=== PATIENT | female | born 1955 | race Caucasian/White ===

== ENCOUNTER 2016-10-30 15:55 | Emergency (ER) | payer BC ==
[~2016-10-30] VITALS: Ht 167.6 cm; Wt 89.0 kg
[~2016-10-30 15:55] MED LIST: AMIO200T4 PO; ASCO100061 PO; ATEN-173 PO; CHOL100010 PO; COEN1CAP37 PO; DABI150C PO; ESTVR2 VAGRING; MAGN1TAB21 PO; MULT-506 PO; SEA KELP PO; [UNRECOGNIZED DRUG - CODE] TOP; [UNRECOGNIZED DRUG - OTHER] PO
[2016-10-30 16:02] VITALS: BP 150/98; PULSE 76; TEMP 36.7; O2SAT 99; Ht 167.6 cm; Wt 89.0 kg
[2016-10-30] MEDS ORDERED: RABIES VACCINE (IMOVAX) HUMAN DIPL CELL 2.5 INTER.UNIT/ML SYR IM. ONE (16:15)
[2016-10-30] MEDS ORDERED: KELP100T PO (16:24)
[2016-10-30] MEDS ORDERED: TNR25 PO (16:24)
[2016-10-30] MEDS ORDERED: CHOL100027 PO (16:24)
--- NOTE | 2016-10-30 16:42 | EMERGENCY ROOM VISIT NOTE ---
History First contact with patient: 16:02 Chief Complaint: RABIES VACCINE Stated Complaint: RABIES EXPOSURE History of Present Illness The patient is a 60 year old female who presents to the Emergency Room with her spouse, requesting rabies post exposure prophylaxis. The patient reports that her was installing fence posts on their property when a ground hog walked up to him, walking in circles. He did kill the ground hog. The patient and are concerned because the ground hog has been eating the same peaches that they have been eating, and are concerned about transmission of rabies by saliva. Both the patient and have undergone the rabies post exposure prophylaxis series in the after their dog got into a fight with a ground hog that was also acting suspiciously. They did have contact with the ground hog saliva with that incident. Review of Systems 10 system review was performed and was negative except for pertinent positives and negatives as indicated in history of present illness Past Medical/Surgical History Medical Problems: (1) Fracture, tibial plateau Family History Pneumonia Social History Smoking Status: Never Smoker Marital Status: Housing Status: lives with significant other Occupation Status: employed Current/Historical Medications Scheduled Ascorbic Acid (Ascorbic Acid), 1,000 MG PO DAILY Atenolol (Atenolol), 12.5 MG PO DAILY Cholecalciferol (Vitamin D 1000 Unit), 1,000 INTER.UNIT PO DAILY Coenzyme Q10 (Ubidecarenone) (Co Q-10), 200 MG PO DAILY Dabigatran Etexilate Mesylate (Pradaxa), 150 MG PO BID Kelp (Kelp), 100 MG PO DAILY Magnesium Citrate (Mg Suppleme (Magnesium Citrate), 100 MG PO DAILY Multivitamin (Multivitamin), 1 TAB PO DAILY Allergies Coded Allergies: No Known Allergies (Unverified , 07/01/13) Physical Exam Vital Signs Date Time Temp Pulse Resp B/P (MAP) Pulse Ox O2 Delivery O2 Flow Rate FiO2 10/30/16 16:02 36.7 76 18 150/98 99 Room Air Pain Rating (0-10): 0 Physical Exam CONSTITUTIONAL: Healthy and well nourished. HEENT: Normocephalic, atraumatic. Pupils equal, round and reactive. INTEGUMENTARY: No rash or other significant dermatologic conditions noted. NEUROLOGIC: No focal neurologic deficits noted. Medical Decision & Procedures Medications Administered Medications (Trade) Dose Ordered Sig/Blanche Route Start Time Stop Time Status Last Admin Dose Admin Rabies Vaccine Human Diploid Cell (Imovax Rabies) 2.5 interunit ONCE ONCE IM. 10/30/16 16:15 10/30/16 16:16 DC 10/30/16 16:10 2.5 INTERUNIT ED Course Patient history and physical exam were performed. Nurse's notes were reviewed. Vital signs were reviewed and were normal. The patient was administered Imovax IM. The patient was instructed to return in 3 days for a final Imovax immunization. Return sooner with any adverse effects to the injections. Medical Decision Impression Primary Impression: Need for prophylactic vaccination against rabies Departure Information Dispostion Home / Self-Care Forms HOME CARE DOCUMENTATION FORM, IMPORTANT VISIT INFORMATION Patient Instructions [facility] Additional Instructions Return on Thursday 11/02 for your last Imovax injection
== END 2016-10-30 16:23 | disposition home or self-care (01) ==
LOC: C.EDB 15:56 → C.EDD 16:23
DX: Z20.3 Contact with and (suspected) exposure to rabies (principal); Z23 Encounter for immunization; Z79.899 Other long term (current) drug therapy

== ENCOUNTER 2016-11-02 12:47 | Emergency (ER) | payer BC ==
[~2016-11-02] VITALS: Ht 167.6 cm; Wt 91.6 kg
[~2016-11-02 12:47] MED LIST changes: -AMIO200T4 PO; -ATEN-173 PO; -CHOL100010 PO; +CHOL100027 PO; -ESTVR2 VAGRING; +KELP100T PO; -SEA KELP PO; +TNR25 PO; -[UNRECOGNIZED DRUG - CODE] TOP; -[UNRECOGNIZED DRUG - OTHER] PO
[2016-11-02 12:54] VITALS: TEMP 36.7; Ht 167.6 cm; Wt 91.6 kg
[2016-11-02] MEDS ORDERED: RABIES VACCINE (IMOVAX) HUMAN DIPL CELL 2.5 INTER.UNIT/ML SYR IM. ONE (13:15)
--- NOTE | 2016-11-02 13:20 | EMERGENCY ROOM VISIT NOTE ---
History First contact with patient: 13:04 Chief Complaint: RABIES VACCINE REPEAT VISIT Stated Complaint: FOLLOW UP RABIES SHOT History of Present Illness The patient is a 60 year old female who presents to the Emergency Room for a second and final Imovax injection. The patient has already undergone a previous rabies postexposure prophylaxis series. The patient denies any adverse reactions to her previous injection. Review of Systems 6 system review was performed and was negative except for pertinent positives and negatives as indicated in history of present illness Past Medical/Surgical History Medical Problems: (1) Fracture, tibial plateau Family History Pneumonia Social History Smoking Status: Never Smoker Marital Status: Housing Status: lives with significant other Occupation Status: employed Current/Historical Medications Scheduled Ascorbic Acid (Ascorbic Acid), 1,000 MG PO DAILY Atenolol (Atenolol), 12.5 MG PO DAILY Cholecalciferol (Vitamin D 1000 Unit), 1,000 INTER.UNIT PO DAILY Coenzyme Q10 (Ubidecarenone) (Co Q-10), 200 MG PO DAILY Dabigatran Etexilate Mesylate (Pradaxa), 150 MG PO BID Kelp (Kelp), 100 MG PO DAILY Magnesium Citrate (Mg Suppleme (Magnesium Citrate), 100 MG PO DAILY Multivitamin (Multivitamin), 1 TAB PO DAILY Physical Exam Vital Signs Date Time Temp Pulse Resp B/P (MAP) Pulse Ox O2 Delivery O2 Flow Rate FiO2 11/02/16 12:54 36.7 77 18 126/82 96 Room Air Physical Exam CONSTITUTIONAL: Healthy and well nourished. HEENT: Normocephalic, atraumatic. Pupils equal, round and reactive. No scleral icterus. INTEGUMENTARY: No rash or other significant dermatologic conditions noted. NEUROLOGIC: No focal neurologic deficits noted. Medical Decision & Procedures ED Course History and physical exam were performed. Nurse's notes were reviewed. Vital signs were reviewed and normal. The patient was administered Imovax IM without adverse reaction. This is the patient's last injection in the series since the patient has already undergone a post exposure prophylaxis series in the past. The patient was advised that if she has any potential rabies exposure in the future, she should advise her healthcare provider that she has already undergone the initial immunization series. The patient was happy with plan of care, and denied any pain at the time of discharge. Medical Decision Blood Pressure Screening Patient's blood pressure: Normal blood pressure Impression Primary Impression: Need for prophylactic vaccination against rabies Departure Information Referrals Mariola August M.D. (PCP) Patient Instructions [facility]
[2016-11-02 13:31] VITALS: BP 127/74; PULSE 74; O2SAT 99
== END 2016-11-02 13:31 | disposition home or self-care (01) ==
LOC: C.EDB 12:51 → C.EDD 13:31
DX: Z23 Encounter for immunization (principal); Z20.3 Contact with and (suspected) exposure to rabies

== ENCOUNTER 2016-12-25 10:02 | Emergency (ER) | payer BC ==
[~2016-12-25] VITALS: Ht 167.6 cm; Wt 86.7 kg
[2016-12-25] VITALS (8 sets, daily range): BP systolic 75–134; BP diastolic 42–81; PULSE 66–100; TEMP 36.8; O2SAT 98–99; Ht 167.6 cm; Wt 86.7 kg
[2016-12-25] MEDS ORDERED: SODIUM CHLORIDE 0.9% 1000ML 500 ML IV STA (10:34)
[2016-12-25] MEDS ORDERED: QUERTAB PO (10:38)
[2016-12-25 10:48] LABS: BASO % 0.3 %; BASO ABS # 0.02 K/uL (0-0.2); COMPLETE YES; EOS % 2.2 %; IG% 0.4 %; LYMPH % 23.7 %; MEAN CELL VOLUME 90.5 fL (80-100); MEAN CORPUSCULAR HEMOGLOBIN 30.5 pg (25-34); MEAN CORPUSCULAR HGB CONC 33.6 g/dl (32-36); MEAN PLATELET VOLUME 11.2 fL (7.4-10.4); MONO % 7.8 %; NEUT % 65.6 %; PLATELET COUNT 199 K/uL (130-400); RED BLOOD COUNT 4.86 M/uL (4.2-5.4); WHITE BLOOD COUNT 7.16 K/uL (4.8-10.8)
[2016-12-25 10:53] LABS: PARTIAL THROMBOPLASTIN RATIO 1.4; PROTHROMBIN TIME (PATIENT) 10.8 SECONDS (9.0-12.0)
[2016-12-25 10:54] LABS: ALT/SGPT 25 U/L (12-78); BLOOD UREA NITROGEN 15 mg/dl (7-18); CALCIUM 9.3 mg/dl (8.5-10.1); CARBON DIOXIDE 27 mmol/L (21-32); CHLORIDE 107 mmol/L (98-107); CREATININE 0.95 mg/dl (0.60-1.20); GLUCOSE 94 mg/dl (70-99); MAGNESIUM 2.2 mg/dl (1.8-2.4); SODIUM 140 mmol/L (136-145)
--- NOTE | 2016-12-25 10:59 | DIAGNOSTIC IMAGING REPORT ---
CHEST ONE VIEW PORTABLE HISTORY: EVALUATE ALTERED MENTAL STATUS/WEAKNESS COMPARISON: Chest 07/02/2013. FINDINGS: The lungs are clear. Cardiac silhouette is normal in size. No pleural effusions. No pneumothorax. IMPRESSION: No acute process. Electronically signed by: Chip Mcclain M.D. 12/25/2016 10:57 AM Dictated Date/Time: 12/25/2016 10:54 AM
[2016-12-25 11:05] LABS: URINE APPEARANCE CLEAR (CLEAR); URINE BILIRUBIN NEG (NEG); URINE COLOR YELLOW; URINE EPITHELIAL CELL AUTO >30 /lpf (0-5); URINE NITRITE NEG (NEG); URINE SPECIFIC GRAVITY 1.015 (1.000-1.030); UROBILINOGEN NEG (NEG); ZZUR CULT IF INDIC CLEAN CATCH NO
[2016-12-25 11:05] LABS: ALKALINE PHOSPHATASE 76 U/L (45-117); AST/SGOT 20 U/L (15-37)
[2016-12-25 11:07] LABS: MANUAL MICROSCOPIC REQUIRED? NO; REVIEW REQ? NO
--- NOTE | 2016-12-25 11:14 | EMERGENCY ROOM VISIT NOTE ---
History Report prepared by Marlena: Melvi Tuttle Under the Supervision of: Dr. Holland Garland M.D. First contact with patient: 10:25 Chief Complaint: IRREGULAR HEARTBEAT Stated Complaint: A-FIB Nursing Triage Summary: pt reports woke up this AM HR 125, reports hx of A fib , denies cp or sob at this time History of Present Illness The patient is a 61 year old female who presents to the Emergency Room with complaints of a persistent irregular heartbeat that began this morning. The patient reports a history of atrial fibrillation, noting that she was last cardioverted on Jul 28 2015. She states that she had a colonoscopy on December 12, noting that she held her morning and night doses of Pradaxa on December 11 and . The patient states that she resumed her medication normally and states that she last had her Pradaxa last evening. She states that she woke this morning with an irregular heartbeat and was evaluated by Dr. Escalante. The patient states that she was sent to the emergency department for a work up prior to cardioversion. She states that she last ate last evening. The patient denies any chest pain or shortness of breath. She reports fluttering in her chest and nausea. The patient denies any dizziness. Source of History: patient Onset: this morning Position: other (global) Quality: other (irregular heartbeat) Timing: other (persistent) Associated Symptoms: + nausea, No chest pain, No SOB Review of Systems See HPI for pertinent positives & negatives. A total of 10 systems reviewed and were otherwise negative. Past Medical & Surgical Medical Problems: (1) Fracture, tibial plateau Family History Pneumonia Social History Smoking Status: Never Smoker Marital Status: Housing Status: lives with significant other Occupation Status: employed Current/Historical Medications Scheduled Ascorbic Acid (Ascorbic Acid), 1,000 MG PO DAILY Atenolol (Atenolol), 12.5 MG PO BID Cholecalciferol (Vitamin D 1000 Unit), 1,000 INTER.UNIT PO DAILY Coenzyme Q10 (Ubidecarenone) (Co Q-10), 200 MG PO DAILY Dabigatran Etexilate Mesylate (Pradaxa), 150 MG PO BID Kelp (Kelp), 100 MG PO DAILY Magnesium Citrate (Mg Suppleme (Magnesium Citrate), 100 MG PO DAILY Multivitamin (Multivitamin), 1 TAB PO DAILY Quercetin (Quercetin), 50 MG PO DAILY Allergies Coded Allergies: No Known Allergies (Unverified , 12/25/16) Physical Exam Vital Signs Date Time Temp Pulse Resp B/P (MAP) Pulse Ox O2 Delivery O2 Flow Rate FiO2 12/25/16 12:45 66 16 100/70 (80) 98 Room Air 12/25/16 12:30 68 16 88/65 (73) 98 Room Air 12/25/16 12:13 68 16 108/78 (88) 98 Room Air 12/25/16 12:03 67 16 97/70 (79) 98 Room Air 12/25/16 11:53 66 16 100/64 (76) 98 Room Air 12/25/16 11:50 70 16 100/64 99 Nasal Cannula 4 12/25/16 11:47 100 16 75/42 99 Nasal Cannula 4 12/25/16 11:42 99 16 97/47 99 Nasal Cannula 4 12/25/16 11:37 100 16 82/51 99 Nasal Cannula 4 12/25/16 11:32 99 16 111/74 99 Nasal Cannula 4 12/25/16 11:21 36.8 70 20 134/81 98 12/25/16 11:18 36.8 70 20 134/81 Room Air 12/25/16 11:10 70 18 110/74 98 Room Air 12/25/16 10:56 70 18 118/72 97 Room Air 12/25/16 10:28 90 12/25/16 10:23 96 Room Air 12/25/16 10:08 36.8 101 20 124/87 98 Room Air Physical Exam GENERAL: Patient is in no acute distress. HEENT: No acute trauma, normocephalic atraumatic, mucous membranes moist, no nasal congestion, no scleral icterus. NECK: No stridor, no adenopathy, no meningismus, trachea is midline. LUNGS: Clear to auscultation bilaterally, no wheeze, no rhonchi, breath sounds equal. HEART: Irregular without murmurs, rate is normal. ABDOMEN: Soft, nontender, bowel sounds positive, no hernias, no peritonitis. EXTREMITIES: No cyanosis or edema, full range of motion of all the joints without pain or difficulty, no signs for acute trauma. NEUROLOGIC: Oriented x 3, no acute motor or sensory deficits, no focal weakness. SKIN: No rash, no jaundice, no diaphoresis. Medical Decision & Procedures ER Provider Diagnostic Interpretation: X-ray results as stated below per interpretation by me and the radiologist: CHEST ONE VIEW PORTABLE HISTORY: EVALUATE ALTERED MENTAL STATUS/WEAKNESS COMPARISON: Chest 07/02/2013. FINDINGS: The lungs are clear. Cardiac silhouette is normal in size. No pleural effusions. No pneumothorax. IMPRESSION: No acute process. Electronically signed by: Chip Mcclain M.D. 12/25/2016 10:57 AM Dictated Date/Time: 12/25/2016 10:54 AM Laboratory Results 12/25/16 10:20 Red Blood Count 4.86, Mean Corpuscular Volume 90.5, Mean Corpuscular Hemoglobin 30.5, Mean Corpuscular Hemoglobin Concent 33.6, Mean Platelet Volume 11.2, Neutrophils (%) (Auto) 65.6, Lymphocytes (%) (Auto) 23.7, Monocytes (%) (Auto) 7.8, Eosinophils (%) (Auto) 2.2, Basophils (%) (Auto) 0.3, Neutrophils # (Auto) 4.69, Lymphocytes # (Auto) 1.70, Monocytes # (Auto) 0.56, Eosinophils # (Auto) 0.16, Basophils # (Auto) 0.02 12/25/16 10:20 Test 12/25/16 10:20 12/25/16 10:45 White Blood Count 7.16 K/uL (4.8-10.8) Red Blood Count 4.86 M/uL (4.2-5.4) Hemoglobin 14.8 g/dL (12.0-16.0) Hematocrit 44.0 % (37-47) Mean Corpuscular Volume 90.5 fL (80-100) Mean Corpuscular Hemoglobin 30.5 pg (25-34) Mean Corpuscular Hemoglobin Concent 33.6 g/dl (32-36) Platelet Count 199 K/uL (130-400) Mean Platelet Volume 11.2 fL (7.4-10.4) Neutrophils (%) (Auto) 65.6 % Lymphocytes (%) (Auto) 23.7 % Monocytes (%) (Auto) 7.8 % Eosinophils (%) (Auto) 2.2 % Basophils (%) (Auto) 0.3 % Neutrophils # (Auto) 4.69 K/uL (1.4-6.5) Lymphocytes # (Auto) 1.70 K/uL (1.2-3.4) Monocytes # (Auto) 0.56 K/uL (0.11-0.59) Eosinophils # (Auto) 0.16 K/uL (0-0.5) Basophils # (Auto) 0.02 K/uL (0-0.2) RDW Standard Deviation 44.8 fL (36.4-46.3) RDW Coefficient of Variation 13.6 % (11.5-14.5) Immature Granulocyte % (Auto) 0.4 % Immature Granulocyte # (Auto) 0.03 K/uL (0.00-0.02) Prothrombin Time 10.8 SECONDS (9.0-12.0) Prothromb Time International Ratio 1.0 (0.9-1.1) Activated Partial Thromboplast Time 37.2 SECONDS (21.0-31.0) Partial Thromboplastin Ratio 1.4 Anion Gap 6.0 mmol/L (3-11) Est Creatinine Clear Calc Drug Dose 69.0 ml/min Estimated GFR () 74.9 Estimated GFR (Non- 64.6 BUN/Creatinine Ratio 16.0 (10-20) Calcium Level 9.3 mg/dl (8.5-10.1) Magnesium Level 2.2 mg/dl (1.8-2.4) Total Bilirubin 0.3 mg/dl (0.2-1) Aspartate Amino Transf (AST/SGOT) 20 U/L (15-37) Alanine Aminotransferase (ALT/SGPT) 25 U/L (12-78) Alkaline Phosphatase 76 U/L (45-117) Troponin I < 0.015 ng/ml (0-0.045) Total Protein 8.0 gm/dl (6.4-8.2) Albumin 4.1 gm/dl (3.4-5.0) Globulin 3.9 gm/dl (2.5-4.0) Albumin/Globulin Ratio 1.0 (0.9-2) Thyroid Stimulating Hormone (TSH) 1.980 uIu/ml (0.300-4.500) Urine Color YELLOW Urine Appearance CLEAR (CLEAR) Urine pH 7.0 (4.5-7.5) Urine Specific [place] 1.015 (1.000-1.030) Urine Protein NEG (NEG) Urine Glucose (UA) NEG (NEG) Urine Ketones NEG (NEG) Urine Occult Blood NEG (NEG) Urine Nitrite NEG (NEG) Urine Bilirubin NEG (NEG) Urine Urobilinogen NEG (NEG) Urine Leukocyte Esterase SMALL (NEG) Urine WBC (Auto) 1-5 /hpf (0-5) Urine RBC (Auto) 0-4 /hpf (0-4) Urine Hyaline Casts (Auto) 0 /lpf (0-5) Urine Epithelial Cells (Auto) >30 /lpf (0-5) Urine Bacteria (Auto) NEG (NEG) Laboratory results reviewed by me. Medications Administered Medications (Trade) Dose Ordered Sig/Blanche Route Start Time Stop Time Status Last Admin Dose Admin Sodium Chloride 500 ml @ 999 mls/hr Q31M STAT IV 12/25/16 10:34 12/25/16 11:04 DC 12/25/16 10:55 999 MLS/HR ECG Indication: palpitations Rate (beats per minute): 97 Rhythm: atrial flutter Findings: ST depression (Lateral), T-wave inversion (inferior and lateral) ED Course 1034: Ordered Sodium Chloride 500 ml @ 999 mls/hr IV. 1102: The patient was evaluated in room A11B. A complete history and physical exam was performed. I discussed the exam findings with her and I discussed the treatment plan. She verbalized complete understanding and agreement. She will be taken to the director of cath lab shortly. 1108: I discussed the patients case with Dr. Sears, Cardiology. He states that he will be over to take the patient to the director of cath lab for further treatment and care. Medical Decision The patient is a 61 year old female who presents to the ED with complaints of an irregular heartbeat. Differential diagnoses considered include atrial fibrillation or atrial flutter, [place], electrolyte imbalance, anemia, dehydration. There is no leukocytosis or concerning anemia. No significant electrolyte abnormality, kidney failure or hepatitis. The patient appears to be in a euthyroid state. There is no coagulopathy. EKG shows an atrial fib or atrial flutter, no acute ischemic change. Cardiac enzyme testing times one is not consistent with acute cardiac injury. Chest x-ray does not show pneumonia, CHF or pneumothorax. Urinalysis does not show infection. Patient received IV saline, she has been resting comfortably. The patient is stable. She has had atrial fib/atrial flutter before. She is scheduled for presumed cardioversion. I did speak with Dr. Sears of cardiology. He is going to see the patient and the patient will likely be taken to the cardiovascular lab for further intervention. Medication Reconcilliation Current Medication List: was personally reviewed by me Consults Time Called: 1107 Consulting Physician: Dr. Sears, Cardiology Returned Call: 1108 I discussed the patients case with Dr. Sears, Cardiology. He states that he will be over to take the patient to the director of cath lab for further treatment and care. Impression Primary Impression: Atrial flutter Scribe Attestation The scribe's documentation has been prepared under my direction and personally reviewed by me in its entirety. I confirm that the note above accurately reflects all work, treatment, procedures, and medical decision making performed by me. Departure Information Dispostion Still a Patient Referrals Mariola August M.D. (PCP)
[2016-12-25] MEDS ORDERED: FENTANYL CITRATE INJ 50 MCG/1 ML 2 ML VIAL ONE (11:25)
[2016-12-25] MEDS ORDERED: PROPOFOL IV EMULSION 10 MG/ML 20 ML VIAL IV ONE (11:27)
--- NOTE | 2016-12-25 12:00 | Cardiology Procedure Brief Nt ---
Preliminary Cardiology Note Procedure Date Dec 25, 2016. 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 Patient aroused, tolerated well. 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
--- NOTE | 2016-12-25 12:06 | Discharge Instructions ---
Discharge Instructions Procedure Procedure Date: Dec 25, 2016. Reason for Visit: A-FIB. Discharge Discharge Date: Dec 25, 2016. Discharge Diagnosis: Successful FRANCIS guided synchronized electrical cardioversion for atrial fibrillation Problem List: Medical Problems: (1) Atrial flutter Status: Acute Last Recorded Wt (Kilograms): 86.700 Anesthesia Post Anesthesia Instructions: If you have had General Anesthesia or IV Sedation: * Do not drive today. * Resume driving when surgeon permits. * Do not make important decisions or sign legal documents today. * Call surgeon for: 1. Temperature elevations greater than 101 degrees F. 2. Uncontrollable pain. 3. Excessive bleeding. 4. Persistent nausea and vomiting. 5. Medication intolerance (nausea, vomiting or rash). * For nausea and vomiting use only clear liquids such as: tea, soda, bouillon until nausea subsides, then gradually increase diet as tolerated. * If you have any concerns or questions, call your surgeon's office. If physician is unavailable and it is an emergency, call 911 or go to the nearest emergency room. Instructions Activity Recommendations: limitations as noted below Recommended Home Diet: resume previous diet Allergies: Coded Allergies: No Known Allergies (Unverified , 12/25/16) Provider Instructions ACTIVITY RECOMMENDATIONS: Resume activities as tolerated with no limitations unless specified. __ No lifting over __ pounds for 24 hours. __ Do not engage in vigorous exercise, sexual activity, or sports for 24 hours. __ Do not drive or operate any motorized equipment for 24 hours. __ You may return to work/school tomorrow. __ Nothing to eat or drink until gag reflex returns. __ No HOT or WARM liquids for __ hours. __ Avoid "scratchy" foods such as potato chips or pretzels for 24 hours following procedure. SPECIAL CARE: If you experience coughing up or vomiting of blood, contact Follow Up Follow-up with: DR Escalante as scheduled Deborah Spear Recommendations: Call your doctor if: * Temperature above 101 degrees * Pain not relieved by pain medicine ordered * There is increased drainage or redness from any incision * You have any unanswered questions or concerns. Your Doctors Instructions noted above were prepared by provider Yan Sears. Patient Signature Section: Patient Instructions Signature Page More Christian Patient (or Guardian) Signature/Date: I have read and understand the instructions given to me by my caregivers. Caregiver/RN/Doctor Signature/Date: The above-named patient and/or guardian has received patient instructions on this date. + Original Patient Signature Page (only) stays with chart. Please make copy for patient.
--- NOTE | 2016-12-25 12:30 | Anesthesiology Progress Note ---
Anesthesia Post Op Note Date & Time Dec 25, 2016 at 12:30 Vital Signs Pain Intensity: 0 Vital Signs Past 12 Hours Date Time Temp Pulse Resp B/P (MAP) Pulse Ox O2 Delivery O2 Flow Rate FiO2 12/25/16 12:13 68 16 108/78 (88) 98 Room Air 12/25/16 12:03 67 16 97/70 (79) 98 Room Air 12/25/16 11:53 66 16 100/64 (76) 98 Room Air 12/25/16 11:50 70 16 100/64 99 Nasal Cannula 4 12/25/16 11:47 100 16 75/42 99 Nasal Cannula 4 12/25/16 11:42 99 16 97/47 99 Nasal Cannula 4 12/25/16 11:37 100 16 82/51 99 Nasal Cannula 4 12/25/16 11:32 99 16 111/74 99 Nasal Cannula 4 12/25/16 11:21 36.8 70 20 134/81 98 12/25/16 11:18 36.8 70 20 134/81 Room Air 12/25/16 11:10 70 18 110/74 98 Room Air 12/25/16 10:56 70 18 118/72 97 Room Air 12/25/16 10:28 90 12/25/16 10:23 96 Room Air 12/25/16 10:08 36.8 101 20 124/87 98 Room Air Notes Mental Status: alert / awake / arousable, participated in evaluation Pt Amnestic to Procedure: Yes Nausea / Vomiting: adequately controlled Pain: adequately controlled Airway Patency, RR, SpO2: stable & adequate BP & HR: stable & adequate Hydration State: stable & adequate Anesthetic Complications: no major complications apparent
--- NOTE | 2016-12-25 12:35 | HISTORY & PHYSICAL EXAMINATION ---
DATE OF ADMISSION: 12/25/2016 CARDIOLOGY ADMISSION NOTE REFERRING PHYSICIAN: Dr. Escalante. INDICATIONS: Paroxysmal atrial fibrillation with recent relapse. HISTORY OF PRESENT ILLNESS: The patient is a 61-year-old female whose history is notable for paroxysmal atrial fibrillation with prior radiofrequency ablation, April 2015 with redo radiofrequency ablation in July of 2015. The patient has had no recent recurrence of atrial arrhythmias until this morning when she awakened from sleep with a sense of tachypalpitations and breathlessness with activity. Notes usual heart rates run in the 50s and this morning at rest it was 104 and with rapid increase with minimal activity. Past history is notable for prior cerebral infarct, on chronic anticoagulation, notes Pradaxa was recently interrupted for colonoscopy. Otherwise, feeling well. Notes no underlying other medical problems. Notes no chest pains, dizziness, lightheadedness, syncope or near syncope. Notes no fevers, chills or productive cough. Notes no melena, hematochezia, dysuria or hematuria. Has been taking medications otherwise safely. ALLERGIES: None. MEDICATIONS PRIOR TO HOSPITALIZATION: Tenormin 25 mg 1/2 tablet twice per day, Pradaxa 150 mg twice per day, B complex daily, estradiol vaginal cream, omega 3 fish oils, cholecalciferol 1000 units every day, mag citrate 100 mg daily, multivitamin per day. FAMILY HISTORY: Not notable for cardiac disease other than atrial fibrillation. SOCIAL HISTORY: The patient is a nonsmoker. Very rare alcohol user. She is physically active without specific limitation until events occur. LABORATORY DATA: EKG today demonstrates atrial fibrillation with elevated ventricular response, rate 97-110. IMPRESSION: A 61-year-old female with history of paroxysmal atrial fibrillation with relapse this morning. She is chronically anticoagulated with Pradaxa given history of past stroke. She presents today for further evaluation and has been recommended to undergo FRANCIS-guided cardioversion with FRANCIS portion added due to recent interruption of Pradaxa for colonoscopy. Procedure and risks were explained in detail. The patient was referred to the central lab technician for same day procedure. GRACIE
--- NOTE | 2016-12-25 13:01 | CARDIOVERSION ---
DATE OF OPERATION: 12/25/2016 PROCEDURE: Synchronized electrical cardioversion, TE guided. INDICATIONS: Atrial fibrillation with rapid ventricular response. After the procedure and risks were explained in detail to the patient informed consent was obtained. The patient was sedated through anesthesia consult. Transesophageal echocardiogram was performed without difficulty with no evidence to suggest contraindication for synchronized cardioversion. In the same setting patient was repositioned, TE probe removed and patient underwent single 150 joule biphasic synchronized cardioversion with successful conversion to sinus rhythm. Post procedure patient was aroused having tolerated well. EKG post procedure demonstrated sinus rhythm with sinus arrhythmia and first degree AV block, rate 68, QT criteria 425. RECOMMENDATIONS: The patient to be continued on same medications, no adjustments to medical therapy. Will anticipate discharge to home following observation period. FRANCIS guidelines given. I attest to the content of the Intraoperative Record and any orders documented therein. Any exception s are noted below.
--- NOTE | 2016-12-26 13:40 | TEE ---
*NOTICE TO RECEIVING LIBERTARIAN AGENCY This information is strictly Confidential and protected under [place] law. [place] law prohibits you from making any further disclosure of this information unless further disclosure is expressly permitted by the written consent of the person to whom it pertains or is authorized by law. A general authorization for the release of medical or other information is not sufficient for this purpose. Hospital accepts no responsibility if the information is made available to any other person, INCLUDING THE PATIENT. Interpretation Summary * Name: CHRYSTAL BRADY Study Date: 12/25/2016 11:24 AM BP: 111/74 mmHg * Patient Location: [facility] HR: 103 * : 1955 (M/d/yyyy) Gender: Female Height: 66 in * Age: 61 yrs Ethnicity: [place] Weight: 191 lb * Ordering Physician: Yan Sears MD, [facility] * Performed By: Esther Irizarry RDCS * * Reason For Study: A-Fib * BSA: 2.0 m2 * No contraindications to electrical cardioversion observed. * -- Conclusions -- * No thrombus is detected in the left atrial appendage. Procedure Details * The transesophageal portion of this study was personally supervised by the undersigned interpreting physician. * FRANCIS Probe #1 utilized for procedure. * The study was performed in Cardiac Catheterization Lab. * Time out was conducted by the physician, nurse, and epitaxial reactor technician with positive identification of patient and procedure. * Informed consent for Transesophageal Echocardiogram was obtained prior to the procedure. * An intravenous line was placed. A topical anesthetic agent was used for oropharangeal anesthesia. A bite block was inserted. * Sedation performed by the anesthesia department. * The patient's vital signs, including blood pressure, heart rate, pulse oximetry and cardiac rhythm were monitored throughout the procedure . * The posterior oropharynx was anesthetized using a topical anesthetic spray. A bite guard was inserted. * A multifrequency, multiplane transesopheageal echocardiographic endoscope was inserted and manipulated in the standard fashion to achieve multiplane views. * The transesophageal probe was passed without difficulty. * The usual views were obtained; basal, mid-esophageal, transgastric and aortic views. * The patient tolerated the procedure well without evidence of orophangeal or esophageal trauma. * Contrast injection with agitated saline was performed. * Procedure start time was 11:30. Procedure end time was 11:53. Left Ventricle * The left ventricle is normal in size. * There is normal left ventricular wall thickness. * Left ventricular systolic function is normal. * Ejection Fraction = 60-65%. * The left ventricular wall motion is normal. Right Ventricle * The right ventricle is normal in size and function. Atria * The left atrial size is normal. * No thrombus is detected in the left atrial appendage. * No left atrial mass or thrombus visualized. * Right atrial size is normal. * The interatrial septum is intact with no evidence for an atrial septal defect. * Injection of contrast documented no interatrial shunt. Tricuspid Valve * The tricuspid valve is normal. * There is no tricuspid stenosis. * There is trace tricuspid regurgitation. Aortic Valve * The aortic valve is trileaflet. * No hemodynamically significant valvular aortic stenosis. * Trace aortic regurgitation. Pulmonic Valve * Pulmonic stenosis is absent. * There is no significant pulmonary regurgitation. * The pulmonic valve is not well seen, but is grossly normal. Great Vessels * The aortic root is normal size. Pericardium * There is no pericardial effusion.
== END 2016-12-25 11:10 | disposition home or self-care (01) ==
LOC: C.EDB 10:03 → C.EDA 11:10
DX: I48.92 Unspecified atrial flutter (principal); I48.91 Unspecified atrial fibrillation

== ENCOUNTER 2017-02-04 11:08 | Emergency (ER) | payer BC ==
[~2017-02-04] VITALS: Ht 167.6 cm; Wt 87.8 kg
[~2017-02-04 11:08] MED LIST changes: +QUERTAB PO
[2017-02-04 11:14] VITALS: TEMP 36.8; Ht 167.6 cm; Wt 87.8 kg
[2017-02-04] MEDS ORDERED: APIX1TAB3 PO (11:26)
[2017-02-04] MEDS ORDERED: AMOX875T PO (11:26)
[2017-02-04] MEDS ORDERED: OMEG10007 PO (11:26)
[2017-02-04] MEDS ORDERED: VITBC PO (11:26)
[2017-02-04] MEDS ORDERED: CLINDAMYCIN IV 600 MG in DEXTROSE 5% 50ML 50 ML IV ONE (11:45)
[2017-02-04 12:21] LABS: BASO % 0.4 %; BASO ABS # 0.02 K/uL (0-0.2); COMPLETE YES; EOS % 1.9 %; HEMATOCRIT 37.2 % (37-47); IG% 0.2 %; LYMPH % 24.7 %; MEAN CELL VOLUME 91.2 fL (80-100); MEAN CORPUSCULAR HEMOGLOBIN 30.9 pg (25-34); MEAN CORPUSCULAR HGB CONC 33.9 g/dl (32-36); MONO % 10.1 %; NEUT % 62.7 %; PLATELET COUNT 167 K/uL (130-400); RED BLOOD COUNT 4.08 M/uL (4.2-5.4); WHITE BLOOD COUNT 5.66 K/uL (4.8-10.8)
[2017-02-04 12:42] LABS: C-REACTIVE PROTEIN 5.03 mg/dl (0-0.29); CALCIUM 9.2 mg/dl (8.5-10.1); CREATININE 0.75 mg/dl (0.60-1.20); POTASSIUM 4.2 mmol/L (3.5-5.1)
--- NOTE | 2017-02-04 12:59 | DIAGNOSTIC IMAGING REPORT ---
RIGHT FOURTH FINGER 3 VIEWS CLINICAL HISTORY: Finger pain status post CABG bite COMPARISON: None. DISCUSSION: No acute fractures or dislocations are visualized. There is no conventional radiographic evidence of osteomyelitis. There is soft tissue swelling centered on the proximal interphalangeal joint. No radiopaque foreign bodies are visualized. IMPRESSION: 1. Soft tissue swelling 2. No acute fractures 3. No conventional radiographic evidence of acute osteomyelitis Electronically signed by: Dennis Calix M.D. 02/04/2017 12:58 PM Dictated Date/Time: 02/04/2017 12:57 PM
[2017-02-04] MEDS ORDERED: METR-162 PO (13:04)
--- NOTE | 2017-02-04 13:04 | EMERGENCY ROOM VISIT NOTE ---
History Report prepared by Marlena: Mayco Palomo Under the Supervision of: Dr. Edwardo Jean M.D. First contact with patient: 11:37 Chief Complaint: BITE Stated Complaint: INCREASED REDNESS,SWELLING AFTER CAT BITE History of Present Illness The patient is a 61 year old female who presents to the Emergency Room with complaints of a worsening right hand infection after a cat bite two days ago. She states that she had a low grade fever of 100.2 degrees yesterday. She states that the cat that bit her was feral. The patient was immunized for rabies four months ago after being bit by a ground hog. She denies headache, or abdominal pain. She is currently taking Augmentin and has had five doses so far. Source of History: patient Onset: Two days ago Position: hand (right) Quality: other (infection) Timing: worsening Associated Symptoms: + fevers (low grade of 100.2), No headache, No abdominal pain Review of Systems See HPI for pertinent positives & negatives. A total of 10 systems reviewed and were otherwise negative. Past Medical & Surgical Medical Problems: (1) Acute appendicitis (2) Anticoagulant long-term use (3) Atrial fibrillation with rapid ventricular response (4) Fracture, tibial plateau (5) Paroxysmal atrial fibrillation Family History Pneumonia Social History Smoking Status: Never Smoker Marital Status: Housing Status: lives with significant other Occupation Status: employed Current/Historical Medications Scheduled Amoxicillin & Pot Clavulanate (Augmentin 875-125 mg), 1 TAB PO BID Apixaban (Eliquis), 5 MG PO BID Ascorbic Acid (Ascorbic Acid), 1,000 MG PO DAILY Atenolol (Atenolol), 12.5 MG PO BID Cholecalciferol (Vitamin D 1000 Unit), 1,000 INTER.UNIT PO DAILY Coenzyme Q10 (Ubidecarenone) (Co Q-10), 200 MG PO DAILY Fish Oil ([place]-3), 1 CAP PO DAILY Kelp (Kelp), 100 MG PO DAILY Magnesium Citrate (Mg Suppleme (Magnesium Citrate), 100 MG PO DAILY Metronidazole (Flagyl), 500 MG PO TID Multivitamin (Multivitamin), 1 TAB PO DAILY Vitamin B Complex (Vitamin B Complex), 1 TAB PO DAILY Allergies Coded Allergies: No Known Allergies (Unverified , 02/04/17) Physical Exam Vital Signs Date Time Temp Pulse Resp B/P (MAP) Pulse Ox O2 Delivery O2 Flow Rate FiO2 02/04/17 13:15 78 17 106/64 96 Room Air 02/04/17 11:14 36.8 81 18 128/85 97 Room Air Physical Exam GENERAL: Patient is well appearing and in minimal distress. HEENT: No acute trauma, normocephalic atraumatic, mucous membranes moist, no nasal congestion, no scleral icterus. NECK: No stridor, no adenopathy, no meningismus, trachea is midline. LUNGS: No dyspnea. Clear to auscultation and equal bilaterally. No wheeze, no rhonchi. HEART: Regular rate and rhythm. No murmurs, rubs, gallops appreciated. ABDOMEN: Soft, nontender, bowel sounds positive, no masses appreciated, no peritonitis. BACK: No midline tenderness, no CVA tenderness EXTREMITIES: Swelling to the right dorsal hand spreading over the wrist to the forearm. Extensive swelling to the right fourth digit with two bite garcia on the dorsal side. ROM of fingers with moderate pain. No significant pain on passive flexion and extension. Mild erythema of the palmar aspect of the hand. NEUROLOGIC: Alert and oriented, no acute motor or sensory deficits, no focal weakness, cranial nerves grossly intact. SKIN: No rash, no jaundice, no diaphoresis. Medical Decision & Procedures ER Provider Diagnostic Interpretation: X ray results are stated below per my interpretation and the radiologist's interpretation. RIGHT FOURTH FINGER 3 VIEWS DISCUSSION: No acute fractures or dislocations are visualized. There is no conventional radiographic evidence of osteomyelitis. There is soft tissue swelling centered on the proximal interphalangeal joint. No radiopaque foreign bodies are visualized. IMPRESSION: 1. Soft tissue swelling 2. No acute fractures 3. No conventional radiographic evidence of acute osteomyelitis Electronically signed by: Dennis Calix M.D. 02/04/2017 12:58 PM Laboratory Results 02/04/17 12:01 Red Blood Count 4.08, Mean Corpuscular Volume 91.2, Mean Corpuscular Hemoglobin 30.9, Mean Corpuscular Hemoglobin Concent 33.9, Mean Platelet Volume 11.0, Neutrophils (%) (Auto) 62.7, Lymphocytes (%) (Auto) 24.7, Monocytes (%) (Auto) 10.1, Eosinophils (%) (Auto) 1.9, Basophils (%) (Auto) 0.4, Neutrophils # (Auto ) 3.55, Lymphocytes # (Auto) 1.40, Monocytes # (Auto) 0.57, Eosinophils # (Auto ) 0.11, Basophils # (Auto) 0.02 02/04/17 12:01 Test 02/04/17 12:01 02/04/17 12:14 White Blood Count 5.66 K/uL (4.8-10.8) Red Blood Count 4.08 M/uL (4.2-5.4) Hemoglobin 12.6 g/dL (12.0-16.0) Hematocrit 37.2 % (37-47) Mean Corpuscular Volume 91.2 fL (80-100) Mean Corpuscular Hemoglobin 30.9 pg (25-34) Mean Corpuscular Hemoglobin Concent 33.9 g/dl (32-36) Platelet Count 167 K/uL (130-400) Mean Platelet Volume 11.0 fL (7.4-10.4) Neutrophils (%) (Auto) 62.7 % Lymphocytes (%) (Auto) 24.7 % Monocytes (%) (Auto) 10.1 % Eosinophils (%) (Auto) 1.9 % Basophils (%) (Auto) 0.4 % Neutrophils # (Auto) 3.55 K/uL (1.4-6.5) Lymphocytes # (Auto) 1.40 K/uL (1.2-3.4) Monocytes # (Auto) 0.57 K/uL (0.11-0.59) Eosinophils # (Auto) 0.11 K/uL (0-0.5) Basophils # (Auto) 0.02 K/uL (0-0.2) RDW Standard Deviation 44.9 fL (36.4-46.3) RDW Coefficient of Variation 13.6 % (11.5-14.5) Immature Granulocyte % (Auto) 0.2 % Immature Granulocyte # (Auto) 0.01 K/uL (0.00-0.02) Anion Gap 8.0 mmol/L (3-11) Est Creatinine Clear Calc Drug Dose 87.9 ml/min Estimated GFR () 99.7 Estimated GFR (Non- 86.0 BUN/Creatinine Ratio 15.0 (10-20) Calcium Level 9.2 mg/dl (8.5-10.1) C-Reactive Protein 5.03 mg/dl (0-0.29) Bedside Lactic Acid Venous 0.80 mmol/L (0.90-1.70) Laboratory results as reviewed by me. Medications Administered Medications (Trade) Dose Ordered Sig/Blanche Route Start Time Stop Time Status Last Admin Dose Admin Clindamycin Phosphate 600 mg/ Dextrose 54 ml @ 100 mls/hr ONE ONCE IV 02/04/17 11:45 02/04/17 12:17 DC 02/04/17 12:18 100 MLS/HR ED Course 1138: The patient was evaluated in room B12. A complete history and physical exam was performed. 1145: Ordered Clindamycin Phosphate 600 mg/Dextrose 54 mL @ 100 mL/hr IV. 1305: Reevaluated the patient. Discussed results and discharge instructions: she verbalized understanding and agreement. The patient is ready for discharge. Medical Decision Differential: DVT, CHF, Arterial Occlusion, Infectious, Joint Effusion, Trauma, Lymphedema, Idiopathic, Trauma, amongst other pathologies entertained. 61 yr old female with cat bite right 4th finger. No evidence tendon involvement at this time. Cellulitis spreading just past wrist. No systemic symptoms. Labs look good with expected CRP elevation. No evidence bone involvement 4th digit. Tetanus/Rabies UTD. 2.5 days Augmentin so far thus will continue this and add on Flagyl for extra coverage. She is using probiotic. Discussed risks diarrhea/cdiff with abx use. Discussed RTED for repeat evaluation tomorrow. Discussed wound care and symptoms requiring immediate RTED. Medication Reconcilliation Current Medication List: was personally reviewed by me Blood Pressure Screening Patient's blood pressure: Normal blood pressure Blood pressure disposition: Did not require urgent referral Impression Primary Impression: Cat bite Additional Impression: Cellulitis of hand, right Scribe Attestation The scribe's documentation has been prepared under my direction and personally reviewed by me in its entirety. I confirm that the note above accurately reflects all work, treatment, procedures, and medical decision making performed by me. Departure Information Dispostion Home / Self-Care Prescriptions Metronidazole (FLAGYL) 500 Mg Tab 500 MG PO TID for 7 Days, #21 TAB Prov: Edwardo Jean M.D. 02/04/17 Referrals Mariola August M.D. (PCP) Patient Instructions ED Bite Cat, [facility] Health Problem Qualifiers Primary Impression: Cat bite Encounter type: initial encounter Qualified Codes: W55.01XA - Bitten by cat , initial encounter
[2017-02-04 13:15] VITALS: BP 106/64; PULSE 78; O2SAT 96
== END 2017-02-04 13:15 | disposition home or self-care (01) ==
LOC: C.EDB 11:09
DX: S61.254A Open bite of right ring finger without damage to nail, initial encounter (principal); L03.113 Cellulitis of right upper limb; W55.01XA Bitten by cat, initial encounter; I48.0 Paroxysmal atrial fibrillation; Z79.01 Long term (current) use of anticoagulants

== ENCOUNTER → 2017-02-20 | Day surgery (SDC) | payer BC ==
[~2017-02-20] VITALS: Ht 167.6 cm; Wt 83.0 kg
[~2017-02-20] MED LIST changes: +AMOX875T PO; +APIX1TAB3 PO; +OMEG10007 PO; -QUERTAB PO; +VITBC PO; +[UNRECOGNIZED DRUG - CODE] PV; +[UNRECOGNIZED DRUG - OTHER]
[2017-02-20 07:00] VITALS: BP 132/74; PULSE 75; TEMP 36.6; O2SAT 99; Ht 167.6 cm; Wt 83.0 kg
[2017-02-20 07:26] VITALS: BP 116/65; O2SAT 100
[2017-02-20 07:30] VITALS: BP 104/75; O2SAT 99
--- NOTE | 2017-02-20 07:32 | History and Physical ---
History & Physical Date & Time of Service: Feb 19, 2017 at 16:52 Chief Complaint: Symptomatic atrial fibrillation Primary Care Physician: Mariola August M.D. History of Present Illness More Christian is a 61 year old female with a history of recurrent symptomatic persistent atrial fibrillation. She notified our office on 02/18/17 that she was experiencing symptoms of recurrent atrial fibrillation. She notes sensation of an irregular heartbeat and associated easy fatigability. Her symptoms persisted, and therefore direct current cardioversion was scheduled for 02/20/17. The patient has had multiple past cardioversions. The most recent one performed by the undersigned was in May 2015, and last month on 12/25/16 she underwent direct-current cardioversion with transesophageal echocardiogram guidance by Dr. Sears of our practice. She notes she has been on anticoagulation and has not missed any doses of her medications. Past Medical/Surgical History PAST MEDICAL HISTORY: 1. Recurrent symptomatic atrial fibrillation. 2. History of abnormal EKG with repolarization abnormalities. 3. History of cerebral infarction noted on MRI with transient neurologic symptoms having since resolved, that was attributed to atrial fibrillation prior to the initiation of anticoagulation. PAST SURGICAL HISTORY: 1. Multiple direct current cardioversions. 2. Electrophysiology study, pulmonary vein isolation x 2 [facility]. 3. Laparoscopic appendectomy 08/31/2014. FAMILY HISTORY: No significant cardiac history within her family members. SOCIAL HISTORY: The patient is . Her 's name is Blue. 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 She is a nonsmoker. Family History Pneumonia Social History Smoking Status: Never Smoker Marital Status: Housing status: lives with family Occupational Status: employed Multi-Drug Resistant Organisms History of MDRO: No Allergies Coded Allergies: No Known Allergies (Unverified , 02/04/17) Home Medications Scheduled Ascorbic Acid (Ascorbic Acid), 1,000 MG PO DAILY Atenolol (Atenolol), 12.5 MG PO BID Cholecalciferol (Vitamin D 1000 Unit), 1,000 INTER.UNIT PO DAILY Coenzyme Q10 (Ubidecarenone) (Co Q-10), 200 MG PO DAILY Dabigatran Etexilate Mesylate (Pradaxa), 1 CAP PO BID Estradiol (Estradiol), 0.5 GM PV 2XWK Fish Oil ([place]-3), 1 CAP PO DAILY Kelp (Kelp), 100 MG PO DAILY Magnesium Citrate (Mg Suppleme (Magnesium Citrate), 100 MG PO DAILY Multivitamin (Multivitamin), 1 TAB PO DAILY Vitamin B Complex (Vitamin B Complex), 1 TAB PO DAILY Miscellaneous Medications [Tumer] Review of Systems See above for pertinent positives & negatives. A total of 10 systems reviewed and were otherwise negative. Physical Exam Vital Signs Last Vital Signs Documentation Date Time Temp Pulse Resp B/P (MAP) Pulse Ox O2 Delivery O2 Flow Rate FiO2 02/20/17 07:26 16 116/65 100 Nasal Cannula 4 02/20/17 07:00 36.6 75 General Appearance: WD/WN Head: normocephalic Eyes: PERRL Neck: supple Respiratory/Chest: lungs clear, normal breath sounds Cardiovascular: no edema, no gallop, no JVD, no murmur, + irregularly irregular Abdomen/GI: non tender, soft Extremities/Musculoskelatal: normal inspection, no calf tenderness, normal capillary refill Neurologic/Psych: no motor/sensory deficits, alert Impression Assessment and Plan Impression: 61-year-old female 1. Recurrent symptomatic atrial fibrillation 2. Past history of stroke, presumed to be cardioembolic in etiology due to atrial fibrillation, prior to the initiation of anticoagulation Plan: Proceed with direct-current cardioversion. She converted a single dose of synchronized biphasic energy at 150 J in December 2016, and a dose of 200 J in May 2015. Patient has been on uninterrupted anticoagulation with Eliquis for well over the last month. Just prior to her cardioversion in December 2016, her anticoagulation had been disrupted for a screening colonoscopy. She has been back on anticoagulation is not missed any doses of Eliquis since.
--- NOTE | 2017-02-20 07:41 | Cardioversion ---
Electricial Cardioversion Rpt Date of Service: 02/20/17 Electrical Cardioversion Rprt Procedure Date Feb 20, 2017. Pre-Procedure Diagnosis symptomatic atrial flutter Post-Procedure Diagnosis successful conversion to SR Procedure(s) Performed Synchronized direct current cardioversion. Pier Master Leatha Escalante DO Child Welfare Assistant(s) not applicable Estimated Blood Loss none Preliminary Findings After informed consent was obtained and a time out was performed , the patient underwent synchronized direct current cardioversion receiving 1 dose of 200 J of biphasic energy with successful conversion of atrial fibrillation at 77 bpm to sinus rhythm at 63 bpm. There was a 3.2 second conversion pauses noted. Post procedure EKG revealed SR at 63 bpm with first degree AV block, TX interval of 230 ms. Patient tolerated the procedure well. Recommendations Continue current medications including Eliquis without change. Specimens none Anesthesia Propofol [address] Rice of anesthesia. Complication(s) None Disposition Recover in the post cardiac catheterization recovery area, then discharge to home.
--- NOTE | 2017-02-20 07:44 | Discharge Instructions ---
Discharge Instructions Procedure Procedure Date: Feb 20, 2017. Reason for Visit: atrial fibrillation Discharge Discharge Date: Feb 20, 2017. Discharge Diagnosis: Successful conversion to sinus rhythm, receiving 200 J of biphasic energy. Last Recorded Wt (Kilograms): 83 Anesthesia Post Anesthesia Instructions: If you have had General Anesthesia or IV Sedation: * Do not drive today. * Resume driving when surgeon permits. * Do not make important decisions or sign legal documents today. * Call surgeon for: 1. Temperature elevations greater than 101 degrees F. 2. Uncontrollable pain. 3. Excessive bleeding. 4. Persistent nausea and vomiting. 5. Medication intolerance (nausea, vomiting or rash). * For nausea and vomiting use only clear liquids such as: tea, soda, bouillon until nausea subsides, then gradually increase diet as tolerated. * If you have any concerns or questions, call your surgeon's office. If physician is unavailable and it is an emergency, call 911 or go to the nearest emergency room. Instructions Activity Recommendations: resume regular activity Recommended Home Diet: resume previous diet Allergies: Coded Allergies: No Known Allergies (Unverified , 02/04/17) Provider Instructions ACTIVITY RECOMMENDATIONS: Resume activities as tolerated with no limitations unless specified. _x_ No lifting over 10__ pounds for 24 hours. _x_ Do not engage in vigorous exercise, sexual activity, or sports for 24 hours. _x_ Do not drive or operate any motorized equipment for 24 hours. _x_ You may return to work/school tomorrow. _x_ Nothing to eat or drink until gag reflex returns. SPECIAL CARE: If you experience coughing up or vomiting of blood, contact __Dr Escalante __ Follow Up Follow-up with: Keep follow up with Dr Escalante as planned. [facility] Recommendations: Call your doctor if: * Temperature above 101 degrees * Pain not relieved by pain medicine ordered * There is increased drainage or redness from any incision * You have any unanswered questions or concerns. Your Doctors Instructions noted above were prepared by provider Raimundo Escalante. Patient Signature Section: Patient Instructions Signature Page More Gino Patient (or Guardian) Signature/Date: I have read and understand the instructions given to me by my caregivers. Caregiver/RN/Doctor Signature/Date: The above-named patient and/or guardian has received patient instructions on this date. + Original Patient Signature Page (only) stays with chart. Please make copy for patient.
--- NOTE | 2017-02-20 08:03 | Anesthesiology Progress Note ---
Anesthesia Post Op Note Date & Time Feb 20, 2017 at 08:02 Vital Signs Pain Intensity: 0 Vital Signs Past 12 Hours Date Time Temp Pulse Resp B/P (MAP) Pulse Ox O2 Delivery O2 Flow Rate FiO2 02/20/17 07:40 65 16 101/63 (76) 98 Room Air 02/20/17 07:30 16 104/75 99 Nasal Cannula 4 02/20/17 07:30 62 100/66 (77) 99 Nasal Cannula 4 02/20/17 07:26 16 116/65 100 Nasal Cannula 4 02/20/17 07:00 36.6 75 16 132/74 99 Room Air Notes Mental Status: alert / awake / arousable, participated in evaluation Pt Amnestic to Procedure: Yes Nausea / Vomiting: adequately controlled Pain: adequately controlled Airway Patency, RR, SpO2: stable & adequate BP & HR: stable & adequate Hydration State: stable & adequate Anesthetic Complications: no major complications apparent
[2017-02-20 08:15] VITALS: BP 114/66; PULSE 67; O2SAT 98
== END | disposition home or self-care (01) ==
LOC: C.CATH 06:14
PROVIDERS: ATTEND Specialist
DX: I48.92 Unspecified atrial flutter (principal); I48.91 Unspecified atrial fibrillation; Z90.49 Acquired absence of other specified parts of digestive tract; Z86.73 Personal history of transient ischemic attack (TIA), and cerebral infarction without residual deficits

== ENCOUNTER 2017-03-06 08:40 | Inpatient (IN) | payer BC ==
[~2017-03-06] VITALS: Ht 167.6 cm; Wt 85.8 kg
[~2017-03-06 08:40] MED LIST changes: -AMOX875T PO; -APIX1TAB3 PO
--- NOTE | 2017-03-06 09:19 | History and Physical ---
History & Physical Date & Time of Service: Mar 06, 2017 at 09:01 Chief Complaint: palpitations Primary Care Physician: Mariola August M.D. History of Present Illness Source: patient More Christian is a 61-year-old female whom I have followed since June, for recurrent symptomatic atrial fibrillation. Treatment with AV shyam blockers has been limited due to baseline sinus bradycardia. In June, she was admitted to [facility] with new onset atrial fibrillation which had been detected under primary care provider 's office and she had initially been started on sotalol 80 milligrams twice daily but due to a slow resting sinus bradycardia rate of 40 beats per minute this had been reduced to 40 milligrams by mouth twice daily. Over the years her atrial fibrillation episodes became more frequent and more symptomatic. In June, she was seen by her primary care provider for complaint of expressive aphasia. She was noted to have several focal abnormalities on MRI of the brain consistent with a cardioembolic parietal stroke. And she had subsequently been placed on anticoagulation. She underwent pulmonary vein isolation/cardio ablation therapy on 2 separate occasions at [facility]. After second ablation, she was maintained on low-dose amiodarone with good results, and this was subsequently weaned due to concerns of long-term potential toxicity. She had been doing well for number of months until she ultimately required repeat direct current cardioversion performed by the undersigned at [facility] in May,. She presented again as an outpatient with recurrent atrial fibrillation in December, and underwent direct current cardioversion performed by Dr. Sears of our practice on 12/25/2016. Her symptoms occurred again prompting another recent direct current cardioversion on 02/19/2017. The patient had notified our office on 03/04/2017 that she had recurrent symptoms of atrial fibrillation. Her symptoms persisted overnight that night, and throughout her work day yesterday. Her heart rate is better controlled now than what it was 24 hours ago, but she still feels irregular heartbeat and she has an associated ongoing complaint of fatigue which is her typical atrial fibrillation symptom. Past Medical/Surgical History PAST MEDICAL HISTORY: 1. Recurrent symptomatic atrial fibrillation. 2. History of abnormal EKG with repolarization abnormalities. 3. History of cerebral infarction noted on MRI with transient neurologic symptoms having since resolved, that was attributed to atrial fibrillation prior to the initiation of anticoagulation. PAST SURGICAL HISTORY: 1. Multiple direct current cardioversions. 2. Electrophysiology study, pulmonary vein isolation x 2 [facility]. 3. Laparoscopic appendectomy 08/31/2014. FAMILY HISTORY: No significant cardiac history within her family members. SOCIAL HISTORY: The patient is . Her 's name is Blue. 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 She is a nonsmoker. Family History Pneumonia Social History Smoking Status: Never Smoker Marital Status: Housing status: lives with family Occupational Status: employed Multi-Drug Resistant Organisms History of MDRO: No Allergies Coded Allergies: No Known Allergies (Unverified , 02/04/17) Home Medications Scheduled Ascorbic Acid (Ascorbic Acid), 1,000 MG PO DAILY Atenolol (Atenolol), 12.5 MG PO BID Cholecalciferol (Vitamin D 1000 Unit), 1,000 INTER.UNIT PO DAILY Coenzyme Q10 (Ubidecarenone) (Co Q-10), 200 MG PO DAILY Dabigatran Etexilate Mesylate (Pradaxa), 1 CAP PO BID Estradiol (Estradiol), 0.5 GM PV 2XWK Fish Oil (Oreana-3), 1 CAP PO DAILY Kelp (Kelp), 100 MG PO DAILY Magnesium Citrate (Mg Suppleme (Magnesium Citrate), 100 MG PO DAILY Multivitamin (Multivitamin), 1 TAB PO DAILY Vitamin B Complex (Vitamin B Complex), 1 TAB PO DAILY Miscellaneous Medications [Tumer] Physical Exam Vital Signs Vital signs currently pending. General: no acute distress and stated age Eyes: conjunctiva are pink and non-injected, sclera clear Neck: normal jugular venous pulse, no hepatojugular reflux Chest: normal shape and normal respiratory effort Lungs: clear to auscultation and percussion Cardiac Exam: - irregular rhythm, no murmur Abdomen: abdomen soft, non-tender, no abnormal masses and no hepatosplenomegaly Musculoskeletal: no gait disturbance, no weakness Extremities: no edema and no cyanosis Neuro: grossly normal exam Psych: appropriate affect and insight. Diagnostics Diagnostic Radiology Summary of outpatient transthoracic echocardiogram performed 07/12/2014 at [facility]: There was sinus bradycardia during the examination. The left ventricular cavity size is normal. The LV wall thickness is normal. The left ventricular wall motion is normal. The qualitative LV ejection fraction is 60-64% (normal). The left atrium is normal sized (< 28ml/m^2, area length). Mild aortic valve regurgitation is present. Mild functional mitral regurgitation is present. There is no evidence of pulmonary hypertension The interatrial septum is intact without interatrial shunt, atrial septal defect , or patent foramen ovale. EKG EKG Pending Impression Assessment and Plan IMPRESSION: 61 year old female 1. Recurrent symptomatic atrial fibrillation 2. Baseline sinus bradycardia when in sinus rhythm 3. History of stroke event which presented with speech impairment, presumed to be cardioembolic in the setting of paroxysmal atrial fibrillation, the event took place prior to the initiation of anticoagulation PLAN: The patient presents with symptoms of recurrent atrial fibrillation. She had recently undergone direct current cardioversion by the undersigned just over 2 weeks ago on 02/19/2017, and the month before that underwent direct current cardioversion on 12/25/2016. The patient had contacted my office yesterday 03/04/2017 stating that her heart rate had become elevated spontaneously to the range of 100-116 beats per minute while she was sitting on the couch. She was able to go to sleep that night, when she awoke to go to work yesterday, she took her morning medications, and still felt as though her heart rate was mildly elevated and irregular. She felt fatigue and palpitations throughout her work day yesterday, and this morning she still feels as though her heart is irregular, but the rate is improved to the 60s 70 beat per minute range on her home heart monitor. Unfortunately, outpatient management for her recurrent atrial fibrillation has been unsuccessful with 2 recent outpatient cardioversions performed in January in December,. Prior to that she had undergone an additional cardioversion in May,. She has had a history of pulmonary vein isolation/cryoablation therapy on 2 separate occasions. At this time, she is going to be reassessed with a repeat EKG, and chemistry panel including magnesium level. Her kidney function has been normal historically in the past, with most recent calculated GFR in August, sixteen as an outpatient at [facility] with calculated GFR greater than 60 mL/minute per meter squared at that time. Her corrected QT interval has been within normal limits with noted baseline repolarization abnormalities when she is in sinus rhythm which is been present since her initial diagnosis of atrial fibrillation. She remains on therapeutic anticoagulation with Eliquis 5 milligrams twice daily , and has not missed any doses. If corrected QT interval is stable and electrolyte levels are stable, will consider initiation of the anti rhythmic medication dofetilide with an initiation dose of 500 milligrams by mouth q.[address] Sears is covering the hospital today, and is going to reassess her on rounds.
[2017-03-06 10:21] VITALS: BP 126/78; PULSE 93; TEMP 36.8; O2SAT 95; Ht 167.6 cm; Wt 85.8 kg
--- NOTE | 2017-03-06 10:21 | NUR ---
A/ID NOTE:THIS IS A 61 YEAR OLD FEMALE PATIENT ADMITTED WITH DIAGNOSIS OF ATRIAL FIBRILLATION UNDER THE SERVICE OF DR FITZPATRICK. PATIENT ORIENTED TO ROOM,CALL KAUR, AND BED CONTROLS. PATIENT IS ALERT AND ORIENTED TIMES 4. LUNGS ARE CLEAR, ON ROOM AIR, NO RESPIRATORY DISTRESS NOTED. ATRIAL FIBRILLATION ON DELI MANAGER. ABDOMEN IS SOFT,NONTENDER,+BOWELS SOUNDS. NO PERIPHERAL EDEMA NOTED. 20 GAUGE SALINE LOCK STARTED IN PATIENT'S LEFT WRIST. SKIN INTACT. VITALS STABLE. PATIENT IS INDEPENDENT WITH ACTIVITIES OF DAILY LIVING AND LIVES WITH HER . PLAN TO DISCHARGE PATIENT TO HOME AT TIME OF DISCHARGE
[2017-03-06 10:38] LABS: BASO % 0.8 %; BASO ABS # 0.04 K/uL (0-0.2); EOS % 2.8 %; EOS ABS # 0.14 K/uL (0-0.5); HEMATOCRIT 42.1 % (37-47); HEMOGLOBIN 14.3 g/dL (12.0-16.0); LYMPH % 37.4 %; LYMPH ABS # 1.88 K/uL (1.2-3.4); MEAN CELL VOLUME 92.3 fL (80-100); MEAN CORPUSCULAR HEMOGLOBIN 31.4 pg (25-34); MEAN PLATELET VOLUME 10.8 fL (7.4-10.4); MONO % 10.7 %; MONO ABS # 0.54 K/uL (0.11-0.59); NEUT % 48.3 %; NEUT ABS # 2.43 K/uL (1.4-6.5); PLATELET COUNT 199 K/uL (130-400); RED CELL DISTRIBUTION WIDTH CV 13.9 % (11.5-14.5); RED CELL DISTRIBUTION WIDTH SD 46.7 fL (36.4-46.3); WHITE BLOOD COUNT 5.03 K/uL (4.8-10.8)
[2017-03-06 10:48] LABS: PTT PATIENT 26.6 SECONDS (21.0-31.0)
[2017-03-06 10:59] LABS: ALT/SGPT 28 U/L (12-78); BLOOD UREA NITROGEN 16 mg/dl (7-18); CALCIUM 9.4 mg/dl (8.5-10.1); CARBON DIOXIDE 25 mmol/L (21-32); CREATININE 0.88 mg/dl (0.60-1.20); GLUCOSE 96 mg/dl (70-99); POTASSIUM 4.4 mmol/L (3.5-5.1); SODIUM 140 mmol/L (136-145)
[2017-03-06 11:01] LABS: ALKALINE PHOSPHATASE 75 U/L (45-117); AST/SGOT 18 U/L (15-37); TOTAL PROTEIN 7.8 gm/dl (6.4-8.2)
[2017-03-06] MEDS ORDERED: NON-FORMULARY MEDICATION ONE (11:45)
--- NOTE | 2017-03-06 12:00 | NUR ---
A: Assessment completed. Refer to EMR for assessment details. Currently afib on tele. Patient denies any chest pain or shortness of breath at this time. Independent with all hygiene care. Ambulates hallways with a steady gait and no assist. Call tatum within reach. Patient agrees to ring if needs assistance. Will continue to monitor.
[2017-03-06] MEDS ORDERED: DOFETILIDE 125 MCG CAP PO ONE (12:45)
--- NOTE | 2017-03-06 16:00 | NUR ---
A: The patient is alert and oriented x4 and is up in the chair reading at this time. Pt denies pain, nausea and shortness of breath, vital signs are stable on room air, and the patient is in atrial fibrillation on the manager cardiac. The patient states that she feels generally well. The patient's right forearm peripheral IV site is saline locked, asymptomatic and intact. The patient is up independently in the room and ambulates in the hallway, gait is steady. The patient is from home and is typically independent in care and activities. Call tatum is within reach.
[2017-03-06 16:03] VITALS: BP 124/83; PULSE 113; TEMP 36.7; O2SAT 97
[2017-03-06] MEDS: DOFETILIDE 125 MCG CAP PO SCH (17:01)
[2017-03-06 19:21] VITALS: BP 125/85; PULSE 66; TEMP 36.6; O2SAT 98
--- NOTE | 2017-03-06 19:23 | NUR ---
Patient noted to have a 2.7 second pause, then a 7.2 second pause. She then converted to SR with 1st degree block. Notified Dr. Sears of change. No changes to existing orders.
--- NOTE | 2017-03-06 20:15 | NUR ---
a: Full head to toe assessment completed at this time. Patient is alert and oriented at present time. She felt dizziness during pause at the beginning of the shift, she has felt nothing further since. Remains SR on monitor with 1st degree block and PACs. Patient denies complaints. No edema. SL intact without complications. Refer to EMR for full assessment details. Call tatum and bedside table are within reach. Will continue to monitor patient closely.
[2017-03-06] MEDS: DABIGATRAN ELEXILATE 75 MG CAP PO SCH (21:00)
[2017-03-06 23:34] VITALS: BP 104/69; PULSE 66; TEMP 36.5; O2SAT 97
--- NOTE | 2017-03-07 00:01 | NUR ---
a: Reassessment completed at this time. Patient is resting well without complaints. Remains SR on monitor. SL intact. No shortness of breath on room air. Refer to EMR for full assessment details. Call tatum and bedside table are within reach. Will continue to monitor patient closely.
[2017-03-07 03:51] VITALS: BP 110/73; PULSE 71; TEMP 36.6; O2SAT 97
--- NOTE | 2017-03-07 04:00 | NUR ---
a: Reassessment completed at this time. Patient denies pain. SL intact without complications. No needs voiced at present time. Refer to EMR for full assessment details. Call tatum and bedside table are within reach. Will continue to monitor patient closely. Addendum: 03/07/17 at 0418 by Kirsten Guzman RN Remains SR rate 60s on monitor.
[2017-03-07 07:27] LABS: HEMATOCRIT 42.5 % (37-47); HEMOGLOBIN 14.3 g/dL (12.0-16.0); MEAN CELL VOLUME 93.4 fL (80-100); MEAN CORPUSCULAR HEMOGLOBIN 31.4 pg (25-34); MEAN CORPUSCULAR HGB CONC 33.6 g/dl (32-36); MEAN PLATELET VOLUME 10.7 fL (7.4-10.4); PLATELET COUNT 188 K/uL (130-400); RED CELL DISTRIBUTION WIDTH CV 13.9 % (11.5-14.5); RED CELL DISTRIBUTION WIDTH SD 47.4 fL (36.4-46.3); WHITE BLOOD COUNT 4.98 K/uL (4.8-10.8)
[2017-03-07 07:41] VITALS: BP 134/76; PULSE 75; TEMP 36.6; O2SAT 96
[2017-03-07] MEDS: DOFETILIDE 125 MCG CAP PO SCH ×2 (07:51→17:02)
[2017-03-07] MEDS: VITAMIN B COMPLEX TAB PO SCH (07:52)
[2017-03-07] MEDS: MULTIVITAMIN TAB PO SCH (07:53)
[2017-03-07] MEDS: CHOLECALCIFEROL 1000 INTER.UNIT TAB PO SCH (07:53)
--- NOTE | 2017-03-07 08:00 | NUR ---
A: Awake, alert and oriented X4. Ambulating independently and freely perimeter of unit. Initial assessment completed, refer to EMR for details. NSR on kitchen stewardess. Expected discharge to home with medically stable. Call tatum within easy reach when in room. Will continue to monitor.
[2017-03-07 08:04] LABS: CALCIUM 9.3 mg/dl (8.5-10.1); CREATININE 0.86 mg/dl (0.60-1.20); POTASSIUM 4.3 mmol/L (3.5-5.1)
[2017-03-07] MEDS: DABIGATRAN ELEXILATE 75 MG CAP PO SCH (09:00)
--- NOTE | 2017-03-07 10:04 | Cardiology Follow-Up ---
Subjective General Date of Service: Mar 07, 2017. Chief Complaint: Tikosyn loading Pt evaluation today including: conversation w/ patient, physical exam, chart review, lab review, review of studies, review of inpatient medication list History of Present Illness Patient seen and examined. Chart, medications, and telemetry reviewed. Tikosyn prescribers information reviewed as well. Telemetry: Atrial fibrillation/flutter with a controlled ventricular response, converting to sinus with a long conversion pause at 18:58:19 on 03/06/2017. EKG dated and timed 07-MAR-2017 @ 06:15:06: Sinus rhythm at 64 bpm with 1st degree A-V block (DC interval 248 ms). QT/QTc: 460/474 ms. Creatinine Clearance by Cockcroft-Gault Equation is 93.70 mL/min. Symptomatic with conversion. Atenolol decreased to 12.5 mg once a day. Fatigue is mildly improved. No chest pain. No palpitations. No dyspnea. No fluid retention. Patient took her own Eliquis last evening and again this morning (Medication list has Pradaxa which she refused last night). Allergies Coded Allergies: No Known Allergies (Unverified , 02/04/17) Social History Smoking Status: Never Smoker Hx Tobacco Use In Past Year?: No Hx Alcohol Use - Type And Amou: Yes (WINE ONCE PER MONTH) Hx Substance Use - Type And Am: No Problem List Medical Problems: (1) Atrial flutter Status: Acute (2) Cat bite Status: Acute (3) Cellulitis of hand, right Status: Acute (4) Need for prophylactic vaccination against rabies Status: Acute (5) Need for prophylactic vaccination against rabies Status: Acute Physical Exam Vital Signs Last Vital Signs Documentation Date Time Temp Pulse Resp B/P (MAP) Pulse Ox O2 Delivery O2 Flow Rate FiO2 03/07/17 08:00 Room Air 03/07/17 07:41 36.6 75 18 134/76 (02) 96 Physical Exam Constitutional: General Apperance: heathly-appearing Level of Distress: NAD Psychiatric: Mental Status: active & alert Orientation: to time, to place, to person Memory: recent memory normal, remote memory normal Head: normocephalic, atraumatic Eyes: Pupils: PERRLA Neck: pertinent finding (Normal JVP) Lungs: Respiratory effort: no dyspnea Auscultation: breath sounds normal, no wheezing, no rales/crackles, no rhonchi Cardiovascular: Heart Auscultation: RRR, normal S1, normal S2, no murmurs, no rubs, no gallops Peripheral Pulses: Dorsalis Pedis Pulse: normal on the left, normal on the right Abdomen: Bowel Sounds: normal Extremities: no cyanosis, no edema, no clubbing Neurologic: Cranial Nerves: grossly intact Assessment and Plan Assessment and Plan Admission with symptomatic atrial fibrillation, Tikosyn loading. First dose of Tikosyn (Dofetilide) received at 12:41 on 03/06/2017 Status post conversion to sinus with prolonged conversion pause at 18:58:19 on 03/06/2017 Atenolol reduced to 12.5 mg once a day. Continue anticoagulation Continue Tikosyn loading as presently prescribed. Continue continuous telemetry monitoring (minimum of three days is required) EKG 23 hours after each dose of TIKOSYN. Addendum: When clarifying the anticoagulation issue the patient noted a mild dizziness spell. Review of her continuous tester operator showed no bradycardia, pauses, arrhythmias, etc. Patient seen and examined, assessment as above. Plan continue current therapies , maintain telemetry. Yan Sears MD Laboratory Results Last 24 Hours Test 03/06/17 10:24 03/07/17 07:08 White Blood Count 5.03 K/uL 4.98 K/uL Red Blood Count 4.56 M/uL 4.55 M/uL Hemoglobin 14.3 g/dL 14.3 g/dL Hematocrit 42.1 % 42.5 % Mean Corpuscular Volume 92.3 fL 93.4 fL Mean Corpuscular Hemoglobin 31.4 pg 31.4 pg Mean Corpuscular Hemoglobin Concent 34.0 g/dl 33.6 g/dl Platelet Count 199 K/uL 188 K/uL Mean Platelet Volume 10.8 fL 10.7 fL Neutrophils (%) (Auto) 48.3 % Lymphocytes (%) (Auto) 37.4 % Monocytes (%) (Auto) 10.7 % Eosinophils (%) (Auto) 2.8 % Basophils (%) (Auto) 0.8 % Neutrophils # (Auto) 2.43 K/uL Lymphocytes # (Auto) 1.88 K/uL Monocytes # (Auto) 0.54 K/uL Eosinophils # (Auto) 0.14 K/uL Basophils # (Auto) 0.04 K/uL RDW Standard Deviation 46.7 fL 47.4 fL RDW Coefficient of Variation 13.9 % 13.9 % Immature Granulocyte % (Auto) 0.0 % Immature Granulocyte # (Auto) 0.00 K/uL Prothrombin Time 10.0 SECONDS Prothromb Time International Ratio 1.0 Activated Partial Thromboplast Time 26.6 SECONDS Partial Thromboplastin Ratio 1.0 Sodium Level 140 mmol/L 137 mmol/L Potassium Level 4.4 mmol/L 4.3 mmol/L Chloride Level 107 mmol/L 105 mmol/L Carbon Dioxide Level 25 mmol/L 29 mmol/L Anion Gap 8.0 mmol/L 4.0 mmol/L Blood Urea Nitrogen 16 mg/dl 16 mg/dl Creatinine 0.88 mg/dl 0.86 mg/dl Estimated GFR () 82.2 84.5 Estimated GFR (Non- 70.9 72.9 BUN/Creatinine Ratio 18.5 18.4 Random Glucose 96 mg/dl 87 mg/dl Calcium Level 9.4 mg/dl 9.3 mg/dl Magnesium Level 2.5 mg/dl 2.6 mg/dl Total Bilirubin 0.4 mg/dl Aspartate Amino Transf (AST/SGOT) 18 U/L Alanine Aminotransferase (ALT/SGPT) 28 U/L Alkaline Phosphatase 75 U/L Total Protein 7.8 gm/dl Albumin 4.0 gm/dl Globulin 3.8 gm/dl Albumin/Globulin Ratio 1.1 Hepatitis C Antibody Screen NEG Est Creatinine Clear Calc Drug Dose 76.0 ml/min
[2017-03-07 11:15] VITALS: BP 123/80; PULSE 68; TEMP 36.7; O2SAT 100
--- NOTE | 2017-03-07 12:00 | NUR ---
A: Ambulating freely on unit in no acute distress. Remains NSR on cardiac cath tech. Call tatum within easy reach. Will continue to monitor.
--- NOTE | 2017-03-07 16:00 | NUR ---
A: Assessment completed. Refer to EMR for assessment details. Currently NSR with 1st degree block on tele. Patient denies any chest pain or shortness of breath at this time. Independent with all hygiene care. Ambulates hallways with a steady gait and no assist. Call tatum within reach. Patient agrees to ring if needs assistance. Will continue to monitor.
[2017-03-07 16:02] VITALS: BP 132/84; PULSE 80; TEMP 37; O2SAT 98
[2017-03-07 19:33] VITALS: BP 131/87; PULSE 73; TEMP 36.7; O2SAT 97
[2017-03-07] MEDS: APIXABAN 2.5 MG TAB PO SCH (19:55)
--- NOTE | 2017-03-07 20:00 | NUR ---
A. Patient assessed, resting in bed watching TV with at bedside. Patient is AAOx4, pleasant and cooperative. She is denying any pain or SOB. VSS. NSR with 1AVB with HR in 70s. Denying any dizziness or weakness. Ambulating well on own. IV intact and patent. No skin issues. She was reminded on use of call tatum and calling if needing anything.
[2017-03-07 23:30] VITALS: BP 112/74; PULSE 69; TEMP 36.5; O2SAT 98
--- NOTE | 2017-03-08 | NUR ---
A. Patient reassessed, resting in bed. No changes at this time. She is denying any needs or complaints. VSS. NSR with HR in 60s. Ambulating well on own. Voiding in toilet. She was reminded to call if needing anything.
[2017-03-08 03:15] VITALS: BP 121/80; PULSE 69; TEMP 36.6; O2SAT 98
--- NOTE | 2017-03-08 04:00 | NUR ---
A. Patient reassessed, resting in bed. No changes at this time. She has been sleeping well throughout the night. VSS. NSR with HR in 70s. Ambulating well on own. Denies any complaints or needs. IV intact. She was reminded to call if needing anything.
[2017-03-08 08:01] VITALS: BP 117/78; PULSE 70; TEMP 36.6; O2SAT 97
[2017-03-08] MEDS: MULTIVITAMIN TAB PO SCH (08:49)
[2017-03-08] MEDS: DOFETILIDE 125 MCG CAP PO SCH ×2 (08:50→15:35)
[2017-03-08] MEDS: CHOLECALCIFEROL 1000 INTER.UNIT TAB PO SCH (08:50)
[2017-03-08] MEDS: VITAMIN B COMPLEX TAB PO SCH (08:50)
[2017-03-08] MEDS: APIXABAN 2.5 MG TAB PO SCH (08:51)
--- NOTE | 2017-03-08 09:23 | NUR ---
A:Awake and oriented. Denies chest pain or shortness of breath. Sinus 1s block. Room air. Vitals stable at this time. Will continue to monitor patient. Addendum: 03/08/17 at 1011 by Adi Wallace RN ID: please incorporate in note above.
--- NOTE | 2017-03-08 09:42 | Cardiology Follow-Up ---
Subjective General Date of Service: Mar 08, 2017. Chief Complaint: Tikosyn loading Pt evaluation today including: conversation w/ patient, physical exam, chart review, lab review, review of studies, review of inpatient medication list History of Present Illness Patient seen and examined. Chart, medications, and telemetry reviewed. "I feel much better." No chest pain, palpitaitons, dyspnea, or fluid retention. Telemetry: Currently sinus rhythm at 74 bpm. No atrial fibrillation/flutter observed over the last 24 hours. No significant bradycardia or pauses. No ventricular arrhythmias. EKG dated and timed 08-MAR-2017 @ 06:39:06 revealed sinus rhythm at 65 bpm with 1st degree A-V block. QT/QTc 454/472 ms. Allergies Coded Allergies: No Known Allergies (Unverified , 02/04/17) Social History Smoking Status: Never Smoker Hx Tobacco Use In Past Year?: No Hx Alcohol Use - Type And Amou: Yes (WINE ONCE PER MONTH) Hx Substance Use - Type And Am: No Problem List Medical Problems: (1) Atrial flutter Status: Acute (2) Cat bite Status: Acute (3) Cellulitis of hand, right Status: Acute (4) Need for prophylactic vaccination against rabies Status: Acute (5) Need for prophylactic vaccination against rabies Status: Acute Physical Exam Vital Signs Last Vital Signs Documentation Date Time Temp Pulse Resp B/P (MAP) Pulse Ox O2 Delivery O2 Flow Rate FiO2 03/08/17 08:01 36.6 70 16 117/78 (91) 97 03/08/17 08:00 Room Air Physical Exam Constitutional: General Apperance: heathly-appearing Level of Distress: NAD Psychiatric: Mental Status: active & alert Orientation: to time, to place, to person Memory: recent memory normal, remote memory normal Head: normocephalic, atraumatic Eyes: Pupils: PERRLA Neck: pertinent finding (Normal JVP) Lungs: Respiratory effort: no dyspnea Auscultation: breath sounds normal, no wheezing, no rales/crackles, no rhonchi Cardiovascular: Heart Auscultation: RRR, normal S1, normal S2, no murmurs, no rubs, no gallops Peripheral Pulses: Dorsalis Pedis Pulse: normal on the left, normal on the right Abdomen: Bowel Sounds: normal Extremities: no cyanosis, no edema, no clubbing Neurologic: Cranial Nerves: grossly intact Assessment and Plan Assessment and Plan Admission with symptomatic atrial fibrillation, Tikosyn loading. Status post conversion to sinus with prolonged conversion pause at 18:58:19 on 03/06/2017 Atenolol dosing reduced to 12.5 mg once a day. Anticoagulation: Eliquis Continue Tikosyn loading. Copay card provided. Continue continuous telemetry monitoring Possible discharge this evening. Outpatient cardiology follow-up with Dr. Carter at [facility] in 1-2 weeks (Office aware, making arrangements) Patient seen and examined, no arrhythmias or QT prolongation Will repeat EKG after evening dose of Tikosyn and if unchanged discharge to home Yan Sears MD
--- NOTE | 2017-03-08 10:19 | Clinical Documentation Query ---
Mr. VALDEZ, SELENA : CLINICAL DOCUMENTATION QUERY Patient problem list noted to contain potentially erroneous documentation. Although no organizational directive regarding maintenance of this list mandates update of this list at this time, HIM and quality professionals forecast this as a potential requirement in 2018. Consider update of this list and/or the status of each itemized problem as appropriate. Thank you. Thank You, Emerson Schaeffer, RN [phone]
[2017-03-08] MEDS ORDERED: DOFE125C PO (10:38)
[2017-03-08] MEDS ORDERED: TNR25 PO (10:38)
[2017-03-08] MEDS ORDERED: ELQ25 PO (10:38)
--- NOTE | 2017-03-08 10:44 | Discharge Instructions ---
Discharge Instructions Date of Service Mar 08, 2017. Admission Reason for Admission: Atrial Flutter, Initiate antiarrhythmic therapy Discharge Discharge Diagnosis / Problem: Successful chemical cardioverson Discharge Goals Goal(s): Improve disease control Activity Recommendations Activity Limitations: resume your previous activity Lifting Limitations: none Exercise/Sports Limitations: as tolerated May Resume Sexual Activity: when tolerated Shower/Bathe: no limitations Driving or Machine Use: no limitations . Instructions / Follow-Up Instructions / Follow-Up Dr Escalante as scheduled Current Hospital Diet Patient's current hospital diet: AHA Diet (Heart Healthy) Discharge Diet Recommended Diet: AHA Diet (Heart Healthy) Pending Studies Studies pending at discharge: no Medical Emergencies . Who to Call and When: Medical Emergencies: If at any time you feel your situation is an emergency, please call 911 immediately. . Non-Emergent Contact Non-Emergency issues call your: Primary Care Provider . Past History Medical & Surgical History: (1) Paroxysmal atrial fibrillation . "Provider Documentation" section prepared by Yan Sears. . VTE Core Measure Inpt VTE Proph given/why not?: Other Anticoagulation
[2017-03-08 11:46] VITALS: BP 132/83; PULSE 71; TEMP 37.1; O2SAT 97
--- NOTE | 2017-03-08 12:24 | NUR ---
A:Sinus. Vitals stable at this time. Will continue to monitor patient.
[2017-03-08 15:04] VITALS: BP 129/85; PULSE 72; TEMP 36.5; O2SAT 99
[2017-03-08 16:00] VITALS: O2SAT 99
[2017-03-08] MEDS ORDERED: NURSING VERBAL MED ORDER ONE ×2 (16:00→16:15)
[2017-03-08] MEDS ORDERED: DOFETILIDE 125 MCG CAP PO SCH (16:30)
[2017-03-08 17:56] VITALS: BP 129/85; PULSE 72; TEMP 36.5; O2SAT 99
--- NOTE | 2017-03-08 18:06 | NUR ---
A: discharge instructions reviewed with patient and . Both verbalized an understanding and had no further questions. Tikosyn 500mcg (4-tablets) home pack given to patient. Verbalized an understanding of tablet dosages and amount of tablets to take, and the difference between hospital dosages and her pharmacy dose.
[2017-03-09] MEDS ORDERED: DOFETILIDE 125 MCG CAP PO SCH
--- NOTE | 2017-03-27 18:38 | DISCHARGE SUMMARY ---
DISCHARGE DIAGNOSES: 1. Paroxysmal atrial fibrillation. 2. Successful initiation of antiarrhythmic therapy. 3. History of cardioembolic parietal stroke, June 2014. 4. History of pulmonary vein isolation ablation x2. COMPLICATIONS: None. ALLERGIES: None. DISCHARGE: To home. CONDITION: Stable. MEDICATIONS ON DISCHARGE: New medications, Eliquis 5 mg p.o. b.i.d., Tikosyn 500 mcg b.i.d., atenolol 12.5 mg once daily, continue vitamin C at 1000 mg daily, cholecalciferol, vitamin D 1000 units daily, Coenzyme Q10 200 mg daily, estradiol 0.5 gram vaginally 2 times weekly, omega 3 fish oils daily, kelp 100 mg daily, mag citrate 100 mg p.o. daily, multivitamin per day. SPECIAL INSTRUCTIONS: Follow up with Dr. Mulugeta Escalante as scheduled. Call or go to the ER for recurrent atrial arrhythmias, dizziness, lightheadedness or near syncope. BRIEF HISTORY: The patient is a 61-year-old female with complex history of paroxysmal atrial fibrillation with complicated history of past stroke was felt to be cardioembolic secondary to underlying atrial fibrillation. She has undergone prior pulmonary vein isolation ablation procedures x2 with relapse into atrial fibrillation. The most recent synchronized electrical cardioversion was performed on 12/25/2016 and then on 02/19/2017 for recurrent atrial fibrillation. Due to episodes of recurrent symptomatic arrhythmia, she was referred for inpatient initiation of antiarrhythmic therapy with Dofetilide. For further details, refer to admission H&P. HOSPITAL COURSE: The patient was admitted to the progressive care unit and maintained on telemetry throughout her hospital stay. Dofetilide was initiated at 500 mcg twice per day. Initial EKG at time of admission was atrial flutter with variable AV block. QT corrected was 390. During hospitalization, patient spontaneously converted to sinus rhythm with transient pause at time of conversion, asymptomatic. The patient maintained on telemetry without further arrhythmias. On day of discharge, the EKG performed after 6 dose of Dofetilide demonstrated sinus rhythm with first degree AV block, rate 66. QT corrected 475. The patient was subsequently discharged home in stable condition with planned outpatient followup with [facility] cardiology as planned.
== END 2017-03-08 18:00 | disposition home or self-care (01) | DRG 309 ==
LOC: C.2T 10:05
PROVIDERS: ADMIT Internal Medicine Cardiovascular Disease; ATTEND Internal Medicine Cardiovascular Disease
DX: I48.0 Paroxysmal atrial fibrillation (principal); L03.113 Cellulitis of right upper limb; S61.451A Open bite of right hand, initial encounter; I48.92 Unspecified atrial flutter; Z79.01 Long term (current) use of anticoagulants; W55.01XA Bitten by cat, initial encounter; Y92.019 Unspecified place in single-family (private) house as the place of occurrence of the external cause

== ENCOUNTER 2022-04-24 09:54 | Inpatient (IN) ==
[2022-04-24] MEDS ORDERED: ACETAMINOPHEN 325 MG TAB PO PRN (09:57)
[2022-04-24 10:51] LABS: Hematocrit (blood only) 46.2 % (37.0-47.0); Hemoglobin 15.5 g/dl (12.0-16.0); Mean Corpuscular Hemoglobin 30.8 pg (25.0-34.0); Mean Corpuscular Hgb Conc 33.5 g/dL (32.0-36.0); Mean Corpuscular Volume 91.7 fL (80.0-100.0); Mean Platelet Volume 11.2 fL (9.4-12.4); Platelet Count 175 K/uL (130-400); RDW Coefficient of Variation 13.6 % (11.5-14.5); RDW Standard Deviation 46.5 fL (36.4-46.3); Red Blood Count 5.04 M/uL (4.20-5.40); White Blood Count 5.13 K/ul (4.8-10.8)
[2022-04-24 11:20] LABS: Albumin Globulin Ratio 1.7 (0.9-2); BUN Creatinine Ratio 23.8 (10-20); Bilirubin,Total 0.8 mg/dl (0.2-1.0); Calcium 10.5 mg/dl (8.5-10.1); Creatinine Clr Calc Pharmacy 70.5 ml/min; Est GFR (African American) 83.9 ml/min; Est GFR (Non-African American) 72.4 ml/min; Globulin 2.9 gm/dl (2.5-4.0); Magnesium 2.5 mg/dl (1.7-2.4); Potassium 4.6 mmol/L (3.5-5.1); Total Protein 7.9 gm/dl (6.0-8.3)
[2022-04-24] MEDS ORDERED: DOFETILIDE 125 MCG CAPSULE PO STA (11:38)
--- NOTE | 2022-04-24 12:12 | History & Physical Report ---
Date of Service April 24, 2022 Assessment & Plan (1) Paroxysmal atrial fibrillation: (2) Encounter for monitoring anti-arrhythmic therapy: Plan -Admit to PCU / Telemetry for planned initiation of antiarrhythmic medication dofetilide. -Patient to remain on telemetry for the first 6 doses of dofetilide. - The patient's calculated creatinine clearance via the recommended Cockcroft- Gault method is 83 mL/min/m. Corrected QT interval is stable compared to prior tracing. -Proceed with initiation of dofetilide, first dose 250 mcg, with plans for EKG 2 hours after the dose for reassessment of the QT interval. -Will adjust dose as necessary, likely planning for dose #[address] in the am of 04/25/2022. -Per [facility]ba internship's recommendations, will plan for an EKG to be performed 2 hours after every dose. -The patient's prior to hospital treatment with atenolol and Eliquis will be continued. History of Present Illness Primary Care Provider: Khadra Olmos MD More Christian is a 66 year old female who presents today to the emergency department for planned admission for the evaluation of the antiarrhythmic medication dofetilide. The patient had most recently been seen as an outpatient on 04/09/2022. Sinus rhythm was confirmed on EKG that day, the patient was concerned about subjective limited exercise capacity which she attributed to a side effect of flecainide. She believes that she felt better when she was on dofetilide previously. As per previous instructions, she took her last dose of flecainide greater than 72 hours ago on the evening of 04/19/2022. She has remained on her chronic dose of atenolol 12.5 mg twice daily. Since her office visit, she notes no change in her general health. She has been working with sleep medicine with regards to complaints of restless legs when sleeping. Her ferritin level had been normal. She has a long history of medication intolerances including other antiarrhythmics. She was previously on brand name Tikosyn (initiated in 2016) but had difficulty obtaining it, and she has the impression that the generic dofetilide had not been effective for her. She ultimately decided to discontinue her dofetilide 500 micrograms twice daily in November,. She remained on low-dose atenolol, and Eliquis. She has undergone pulmonary vein isolation at [facility] in April,, and then due to recurrent atrial fibrillation she underwent repeat ablation with FIRM mapping, and atrial flutter ablation on 07/28/2015 at [facility] with both procedures having been performed by Dr. Aleksandr Enriquez at that time. Prior to her ablation therapy, trials of multiple antiarrhythmic medications had been unsuccessful including sotalol, flecainide, and amiodarone. 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 Most recent cardioversion had taken place in April, converting to sinus bradycardia while on atenolol 12.5 milligrams twice daily flecainide 100 milligrams twice daily with a 5.8 second conversion pause post synchronized cardioversion. Allergies Allergy/AdvReac Type Severity Reaction Status Date / Time No Known Allergies Allergy Verified 05/23/20 08:08 Home Medications Medication Instructions Recorded Confirmed Type apixaban 5 mg tablet (Eliquis) 5 mg PO BID 12/22/18 04/24/22 History atenolol 25 mg tablet 12.5 mg PO BID 12/22/18 04/24/22 History vitamin B complex (B 1 tab PO QAM 12/22/18 05/23/20 History Complex-Vitamin B12 tablet) Magnesium 1 tab PO HS 12/10/19 05/23/20 History omega-3 fatty acids 1,000 mg PO QAM 05/23/20 05/23/20 History ascorbic acid (vitamin C) 1,000 mg 1,000 mg PO DAILY 04/24/22 04/24/22 History tablet (Vitamin C) cholecalciferol (vitamin D3) 25 1,000 unit PO DAILY 04/24/22 04/24/22 History mcg (1,000 unit) tablet coenzyme Q10 200 mg capsule 200 mg PO DAILY 04/24/22 04/24/22 History dofetilide 250 mcg capsule 500 mcg PO BID 04/24/22 04/24/22 History estradiol 2 mg (7.5 mcg/24 hour) 7.5 mcg vaginal Q3M 04/24/22 04/24/22 History vaginal ring (Estring) melatonin 5 mg capsule 5 mg PO HS PRN Sleep 04/24/22 04/24/22 History multivitamin 1 tab PO DAILY 04/24/22 04/24/22 History vit C 250 mg-vit E 200 unit-zinc 1 cap PO DAILY 04/24/22 04/24/22 History ox 12.5 [id number] capsule (ICaps AREDS2) Past Med/Surg History Medical History Afib HX-F/U DR GABRIEL CVA (cerebral vascular accident) HX-PRIOR TO 2016-"TOTALLY RECOVERED" PER PT-NO ISSUES SINCE-DAILY ELIQUIS Tricuspid regurgitation Mild Surgical History History of anesthesia reaction IRRITATED SORE THROAT AFTER 1ST CARDIAC ABLATION History of appendectomy History of cardiac radiofrequency ablation X 2 (AT [facility], LAST PROCEDURE 2017) History of cardioversion 2016 (LAST ONE) History of colonoscopy [place] teeth removed Family History Other No family history of adverse response to anesthesia Social History Smoking Status: Never smoker Second Hand Exposure: Yes ( A CHILD); Hx Alcohol Use: No Hx Substance Use: No Preferred Language: Moroccan Communication Ability: Effective Weight Control Lecturer Required: No Beliefs That Will Affect Care: None Current Living Situation: Spouse Feels Safe at Home: Yes Assistive Devices: Glasses Review of Systems Review of Systems: All systems reviewed & are unremarkable except as noted in HPI & below Physical Exam Physical Exam: Temp Pulse Resp BP Pulse Ox O2 Del Method 36.8 C 84 20 147/89 H 98 04/24/22 10:05 04/24/22 10:05 04/24/22 10:05 04/24/22 10:05 04/24/22 10:05 04/24/22 10:12 Constitutional: WD/WN, vitals as above Respiratory: normal respiratory effort, lungs clear to auscultation Cardiovascular: RRR, no murmur, no edema Chest (Breasts): normal inspection/palpation of breasts Gastrointestinal (Abdomen): normal bowel sounds, soft, nontender, no hepatosplenomegaly Musculoskeletal: Extremities: + extremities abnormal to inspection and no muscle atrophy Neurologic: PERRL, EOMI, accommodation nl, no face palsy, no dysarthria Results & Data Results & Data ([facility]) Laboratory Results Cardiac Enzymes 04/24/22 Range/Units 10:22 AST 31 (13-39) U/L CBC 04/24/22 Range/Units 10:22 WBC 5.13 (4.8-10.8) K/ul RBC 5.04 (4.20-5.40) M/uL Hgb 15.5 (12.0-16.0) g/dl Hct 46.2 (37.0-47.0) % Plt Count 175 (130-400) K/uL Comprehensive Metabolic Panel 04/24/22 Range/Units 10:22 Sodium 138 (136-145) mmol/L Potassium 4.6 (3.5-5.1) mmol/L Chloride 101 (98-107) mmol/L Carbon Dioxide 30 (21-32) mmol/L BUN 20 (6-23) mg/dl Creatinine 0.84 (0.6-1.2) mg/dl Glucose 88 (70-99(Fasting)) mg/dl Calcium 10.5 H (8.5-10.1) mg/dl AST 31 (13-39) U/L ALT 25 (7-52) U/L Alkaline Phosphatase 76 (34-104) U/L Total Protein 7.9 (6.0-8.3) gm/dl Albumin 5.0 (3.4-5.0) gm/dl magnesium level 2.5 SARS-CoV-2 screen is negative Intake and Output 04/23/22 04/24/22 04/24/22 22:59 06:59 14:59 Other: Weight 80.6 kg Weight Measurement Method Chair Scale Patient Weight 04/25/22 06:59 Weight 80.6 kg Diagnostic Findings EKG performed in the emergency department 04/24/2022 11:06 AM and interpreted independently: Sinus rhythm at 70 bpm with marked sinus arrhythmia, first-degree AV block, OK interval 288 ms, incomplete right bundle branch block. Poor R wave progression noted consistent with age-indeterminate anteroseptal infarct pattern. Mild nonspecific repolarization changes. Corrected QT interval 447 ms. Compared to the most recent outpatient EKG tracing 04/09/2022 at [facility], sinus rhythm at 60 bpm with first-degree AV block noted at that time, poor R wave progression is unchanged, the corrected QT interval was 464 ms at that time. Summary of transthoracic echocardiogram performed as an outpatient dated 04/02/2022: There was normal sinus rhythm during the examination. The LV wall thickness is normal. The left ventricular wall motion is normal. Calculated LV ejection Fraction = 61% (three dimensional volumes). The left atrium is mildly enlarged (35-41 ml/m^2). The left ventricular diastolic function is normal. Mild aortic valve regurgitation is present. Trace mitral regurgitation is present. There is a small patent foramen ovale as observed on Color Flow Doppler. Compared to the report of the prior study dated, sinus rhythm has replaced atrial fibrillation. There has been an interval improvement in the left ventricular ejection fraction. A small PFO is now noted. Code Status & VTE Plan VTE Prophylaxis Plan VTE Prophylaxis will be ordered: Yes
[2022-04-24] MEDS ORDERED: MELATONIN 3 MG TAB PO PRN (13:50)
[2022-04-24] MEDS ORDERED: NON-FORMULARY MEDICATION (Magnesium Citrate 100 mg Tablet) PO SCH (14:00)
--- NOTE | 2022-04-24 14:29 | Communication Note ---
Date of Service: April 24, 2022 EKG performed 04/24/21 at 14:15 (Dofetilide dose administered at 12 noon). Sinus rhythm at 63 bpm, first degree AVB QTC 431 ms, compared to 446 ms on the previous. Plan: Continue dofetilide 250 mcg two times per day. Next dose at 9 am on 04/25/22.
--- NOTE | 2022-04-24 16:06 | Electrocardiogram Report ---
Test Reason : Blood Pressure : / mmHG Vent. Rate : 070 BPM Atrial Rate : 070 BPM P-R Int : 288 ms QRS Dur : 092 ms QT Int : 414 ms P-R-T Axes : 067 052 111 degrees QTc Int : 447 ms Sinus rhythm with marked sinus arrhythmia with 1st degree A-V block Anteroseptal infarct , age undetermined Abnormal ECG When compared with ECG of 24-MAY-2020 07:24, Anteroseptal infarct is now Present Confirmed by Enmanuel Carter ([id number]) on 04/24/2022 4:06:02 PM Referred By: REFERRED SELF Confirmed By:Enmanuel Carter
[2022-04-24] MEDS: ATENOLOL 25 MG TABLET PO SCH (20:02)
[2022-04-24] MEDS: APIXABAN 5 MG TABLET PO SCH (20:03)
[2022-04-25 08:06] LABS: BUN Creatinine Ratio 20.5 (10-20); Calcium 9.6 mg/dl (8.5-10.1); Creatinine Clr Calc Pharmacy 81.1 ml/min; Est GFR (African American) 99.5 ml/min; Est GFR (Non-African American) 85.8 ml/min; Magnesium 2.3 mg/dl (1.7-2.4); Potassium 4.2 mmol/L (3.5-5.1)
--- NOTE | 2022-04-25 08:15 | Communication Note ---
Date of Service: April 25, 2022 Telemetry reveals Sinus bradycardia without arrhythmia overnight. EKG at 7:44 am reveals SB at 56 bpm with stable QTC. Proceed with dofetilide 500 mcg this am. This was her prior dose initiated in 2016 which she tolerated well for years. Repeat EKG 2 hours post dose of dofetilide .
[2022-04-25] MEDS: CHOLECALCIFEROL 1,000 UNITS 25 MCG TAB PO SCH (08:17)
[2022-04-25] MEDS: ATENOLOL 25 MG TABLET PO SCH ×2 (08:17→21:55)
[2022-04-25] MEDS: APIXABAN 5 MG TABLET PO SCH ×2 (08:17→20:13)
[2022-04-25] MEDS: ASCORBIC ACID 500 MG TAB PO SCH (08:17)
--- NOTE | 2022-04-25 08:36 | Cardiology Progress Note ---
Date of Service April 25, 2022 Assessment & Plan (1) Paroxysmal atrial fibrillation: (2) Encounter for monitoring anti-arrhythmic therapy: Plan -EKG this am stable. -Plan for dofetilide 500 mcg this am, with EKG 2 hours post dose. -Continue atenolol, Eliquis. Admission and Anticipated Discharge Date Admission Date: April 24, 2022 Subjective Patient seen in follow up. She feels well. Sinus bradycardia present on telemetry. Physical Exam Physical Exam: Temp Pulse Resp BP Pulse Ox O2 Del Method 36.6 C 72 18 133/78 95 04/25/22 07:56 04/25/22 07:56 04/25/22 07:56 04/25/22 07:56 04/25/22 07:56 04/25/22 07:56 Constitutional: WD/WN, vitals as above Respiratory: normal respiratory effort, lungs clear to auscultation Cardiovascular: RRR, no murmur, no edema Chest (Breasts): normal inspection/palpation of breasts Gastrointestinal (Abdomen): normal bowel sounds, soft, nontender, no hepatosplenomegaly Musculoskeletal: Extremities: + extremities abnormal to inspection and no muscle atrophy Neurologic: PERRL, EOMI, accommodation nl, no face palsy, no dysarthria Results & Data ([facility]) Laboratory Results Labs pending
[2022-04-25] MEDS ORDERED: DOFETILIDE 125 MCG CAPSULE PO SCH (09:00)
[2022-04-25] MEDS ORDERED: NON-FORMULARY MEDICATION (Coenzyme Q10 200 mg Capsule) PO SCH (09:00)
[2022-04-25] MEDS: DOFETILIDE 125 MCG CAPSULE PO SCH ×2 (09:28→20:14)
--- NOTE | 2022-04-25 12:02 | Communication Note ---
Date of Service: April 25, 2022 EKG performed at 11:33, reveals stable findings, acceptable QTc of 489 ms. Continue Dofetilide 500 mcg every 12 hours.
--- NOTE | 2022-04-25 15:22 | Electrocardiogram Report ---
Test Reason : Blood Pressure : / mmHG Vent. Rate : 063 BPM Atrial Rate : 063 BPM P-R Int : 296 ms QRS Dur : 100 ms QT Int : 422 ms P-R-T Axes : 077 064 077 degrees QTc Int : 431 ms Sinus rhythm with sinus arrhythmia with 1st degree A-V block Septal infarct (cited on or before 24-APR-2022) Abnormal ECG When compared with ECG of 24-APR-2022 11:06, Incomplete right bundle branch block is no longer Present Confirmed by Enmanuel Carter ([id number]) on 04/25/2022 3:22:32 PM Referred By: REFERRED SELF Confirmed By:Enmanuel Carter
--- NOTE | 2022-04-25 15:35 | Electrocardiogram Report ---
Test Reason : Blood Pressure : / mmHG Vent. Rate : 056 BPM Atrial Rate : 056 BPM P-R Int : 292 ms QRS Dur : 096 ms QT Int : 462 ms P-R-T Axes : 090 068 074 degrees QTc Int : 445 ms Sinus bradycardia with sinus arrhythmia with 1st degree A-V block Nonspecific ST and T wave abnormality Abnormal ECG When compared with ECG of 24-APR-2022 14:15, (unconfirmed) No significant change was found Confirmed by Enmanuel Carter ([id number]) on 04/25/2022 3:34:44 PM Referred By: REFERRED SELF Confirmed By:Enmanuel Carter
--- NOTE | 2022-04-25 15:39 | Electrocardiogram Report ---
Test Reason : Blood Pressure : / mmHG Vent. Rate : 064 BPM Atrial Rate : 064 BPM P-R Int : 160 ms QRS Dur : 094 ms QT Int : 474 ms P-R-T Axes : -84 056 081 degrees QTc Int : 489 ms Unusual P axis, possible ectopic atrial rhythm with undetermined rhtyhm irregularity Septal infarct , age undetermined Abnormal ECG When compared with ECG of 25-APR-2022 07:44, (unconfirmed) Ectopic atrial rhythm has replaced Sinus rhythm Confirmed by Enmanuel Carter ([id number]) on 04/25/2022 3:38:56 PM Referred By: REFERRED SELF Confirmed By:Enmanuel Carter
--- NOTE | 2022-04-26 07:25 | Communication Note ---
Date of Service: April 26, 2022 EKG performed last evening 04/25/2022 at 2219, just over 2 hours after her p.m. dose of dofetilide revealed sinus rhythm at 60 bpm with ongoing first-degree AV block, nonspecific ST changes. QT prolongation noted at 503 ms, increased compared to the prior tracing. Telemetry overnight revealed sinus bradycardia and sinus rhythm in the range of 50s to 60s with no arrhythmia. Ongoing first-degree AV block noted. Plan: Reduce dofetilide dose to 250 mcg twice daily. Next dose due at 9 AM. Plan for EKG 2 hours after next dose.
[2022-04-26] MEDS: APIXABAN 5 MG TABLET PO SCH ×2 (08:20→20:18)
[2022-04-26] MEDS: DOFETILIDE 125 MCG CAPSULE PO SCH ×2 (08:20→20:19)
[2022-04-26] MEDS: CHOLECALCIFEROL 1,000 UNITS 25 MCG TAB PO SCH (08:21)
[2022-04-26] MEDS: ATENOLOL 25 MG TABLET PO SCH ×2 (08:21→20:18)
[2022-04-26] MEDS: ASCORBIC ACID 500 MG TAB PO SCH (08:21)
--- NOTE | 2022-04-26 09:11 | Cardiology Progress Note ---
Date of Service April 26, 2022 Assessment & Plan (1) Paroxysmal atrial fibrillation: (2) Encounter for monitoring anti-arrhythmic therapy: Plan -EKG last evening revealed Qtc of 503 ms. -Dose of dofetilide decreased to 250 mcg. Will repeat EKG 2 hours after dose this am and adjust as necessary. -Continue atenolol, Eliquis. Admission and Anticipated Discharge Date Admission Date: April 24, 2022 Subjective Patient feeling well.Telemetry reveals SR in the 50s to 80s. Physical Exam Constitutional: WD/WN, vitals as above Respiratory: normal respiratory effort, lungs clear to auscultation Cardiovascular: RRR, no murmur, no edema Chest (Breasts): normal inspection/palpation of breasts Gastrointestinal (Abdomen): normal bowel sounds, soft, nontender, no hepatosplenomegaly Musculoskeletal: Extremities: + extremities abnormal to inspection and no muscle atrophy Neurologic: PERRL, EOMI, accommodation nl, no face palsy, no dysarthria Results & Data ([facility]) Vital Signs (Past 12 Hours) Vital Signs Temp Pulse Pulse Resp BP BP Pulse Ox 04/26/22 08:23 109/52 L 04/26/22 08:17 36.6 C 80 16 96/62 L 98 04/26/22 03:16 36.5 C 65 18 114/76 98 04/26/22 00:09 36.3 C L 62 18 113/68 98 04/25/22 23:40 59 L 04/25/22 21:54 56 L 18 125/78 96 O2 Del Method 04/26/22 08:23 04/26/22 08:17 Room Air 04/26/22 03:16 Room Air 04/26/22 00:09 Room Air 04/25/22 23:40 04/25/22 21:54 Room Air
--- NOTE | 2022-04-26 11:32 | Communication Note ---
Date of Service: April 26, 2022 EKG performed 04/26/2022 at 10:29 AM, 2 hours after am dose of dofetilide ,250 mcg. EKG reviewed and interpreted independently: Sinus rhythm at 61 bpm with sinus arrhythmia and first-degree AV block, nonspecific repolarization changes. The corrected QT interval is 465 ms. Compared to the previous tracing performed the evening of 04/25/2022, there has been interval improvement in the QT interval from 503 ms to 465 ms. Plan: Continue dofetilide 250 mcg twice daily. Plan for EKG this evening, 2 hours after p.m. dose. This evening's dose will be dose #5, and dose due on the a.m. of 04/27/2022 will be dose #6.
--- NOTE | 2022-04-26 14:09 | Electrocardiogram Report ---
Test Reason : Blood Pressure : / mmHG Vent. Rate : 062 BPM Atrial Rate : 062 BPM P-R Int : 294 ms QRS Dur : 092 ms QT Int : 496 ms P-R-T Axes : 079 089 081 degrees QTc Int : 503 ms Sinus rhythm with 1st degree A-V block Nonspecific ST abnormality Prolonged QT Abnormal ECG When compared with ECG of 25-APR-2022 11:33, Sinus rhythm has replaced Ectopic atrial rhythm Confirmed by Enmanuel Carter ([id number]) on 04/26/2022 2:08:41 PM Referred By: REFERRED SELF Confirmed By:Enmanuel Carter
--- NOTE | 2022-04-26 14:22 | Electrocardiogram Report ---
Test Reason : Blood Pressure : / mmHG Vent. Rate : 061 BPM Atrial Rate : 061 BPM P-R Int : 286 ms QRS Dur : 098 ms QT Int : 462 ms P-R-T Axes : 064 041 031 degrees QTc Int : 465 ms Sinus rhythm with sinus arrhythmia with 1st degree A-V block Nonspecific ST and T wave abnormality Abnormal ECG When compared with ECG of 25-APR-2022 22:19, (unconfirmed) Nonspecific T wave abnormality now evident in Lateral leads Confirmed by Enmanuel Carter ([id number]) on 04/26/2022 2:22:14 PM Referred By: REFERRED SELF Confirmed By:Enmanuel Carter
--- NOTE | 2022-04-27 07:15 | Communication Note ---
Date of Service: April 27, 2022 EKG performed 04/26/22 at 22:41 : SB at 55 bpm, first degree AVB, QTC stable 449 ms. Continue dofetilide 250 mcg BID.
[2022-04-27] MEDS: CHOLECALCIFEROL 1,000 UNITS 25 MCG TAB PO SCH (08:25)
[2022-04-27] MEDS: DOFETILIDE 125 MCG CAPSULE PO SCH (08:25)
[2022-04-27] MEDS: APIXABAN 5 MG TABLET PO SCH (08:26)
[2022-04-27] MEDS: ASCORBIC ACID 500 MG TAB PO SCH (08:26)
[2022-04-27] MEDS ORDERED: ATENOLOL 25 MG TABLET PO SCH (09:00)
--- NOTE | 2022-04-27 11:51 | Cardiology Progress Note ---
Date of Service April 27, 2022 Assessment & Plan (1) Paroxysmal atrial fibrillation: (2) Encounter for monitoring anti-arrhythmic therapy: Plan -EKG performed this morning 04/27/2022 at 10:26 AM revealed sinus rhythm with first-degree AV block at 60 bpm. Ongoing nonspecific repolarization changes noted. The corrected QT interval is stable at 378 ms. -Patient stable for discharge with plans to proceed with atenolol 12.5 mg once a day as compared to twice daily as she was only taking once a day at home. -Discharge on dofetilide 250 mcg p.o. twice daily. Admission and Anticipated Discharge Date Admission Date: April 24, 2022 Subjective Patient seen in cardiology follow-up. No acute complaints. Telemetry reveals sinus rhythm and sinus bradycardia in the 50s overnight last night. Physical Exam Constitutional: WD/WN, vitals as above Respiratory: normal respiratory effort, lungs clear to auscultation Cardiovascular: RRR, no murmur, no edema Chest (Breasts): normal inspection/palpation of breasts Gastrointestinal (Abdomen): normal bowel sounds, soft, nontender, no hepatosplenomegaly Musculoskeletal: Extremities: + extremities abnormal to inspection and no muscle atrophy Neurologic: PERRL, EOMI, accommodation nl, no face palsy, no dysarthria Results & Data ([facility]) Vital Signs (Past 12 Hours) Vital Signs Temp Pulse Pulse Resp BP BP Pulse Ox 04/27/22 11:29 36.5 C 75 16 120/81 95 04/27/22 08:02 54 L 04/27/22 07:47 36.7 C 63 16 122/79 97 04/27/22 03:15 36.6 C 60 18 122/73 99 O2 Del Method 04/27/22 11:29 Room Air 04/27/22 08:02 04/27/22 07:47 Room Air 04/27/22 03:15 Room Air
--- NOTE | 2022-04-27 11:57 | Electrocardiogram Report ---
Test Reason : Blood Pressure : / mmHG Vent. Rate : 055 BPM Atrial Rate : 055 BPM P-R Int : 290 ms QRS Dur : 096 ms QT Int : 470 ms P-R-T Axes : 070 032 061 degrees QTc Int : 449 ms Sinus bradycardia with marked sinus arrhythmia with 1st degree A-V block Otherwise normal ECG When compared with ECG of 26-APR-2022 10:29, Nonspecific T wave abnormality no longer evident in Lateral leads Confirmed by Enmanuel Carter ([id number]) on 04/27/2022 11:57:48 AM Referred By: REFERRED SELF Confirmed By:Enmanuel Carter
--- NOTE | 2022-04-27 12:04 | Electrocardiogram Report ---
Test Reason : Blood Pressure : / mmHG Vent. Rate : 060 BPM Atrial Rate : 060 BPM P-R Int : 280 ms QRS Dur : 100 ms QT Int : 378 ms P-R-T Axes : 067 063 -07 degrees QTc Int : 378 ms Sinus rhythm with 1st degree A-V block Nonspecific ST and T wave abnormality Abnormal ECG When compared with ECG of 26-APR-2022 22:41, (unconfirmed) Nonspecific T wave abnormality now evident in Inferior leads Nonspecific T wave abnormality now evident in Lateral leads QT has shortened Confirmed by Enmanuel Carter ([id number]) on 04/27/2022 12:04:34 PM Referred By: REFERRED SELF Confirmed By:Enmanuel Carter
--- NOTE | 2022-04-27 13:11 | Discharge Summary ---
Date of Service April 27, 2022 Admission HPI Per Admitting Provider More Christian is a 66 year old female who presents today to the emergency department for planned admission for the evaluation of the antiarrhythmic medication dofetilide. The patient had most recently been seen as an outpatient on 04/09/2022. Sinus rhythm was confirmed on EKG that day, the patient was concerned about subjective limited exercise capacity which she attributed to a side effect of flecainide. She believes that she felt better when she was on dofetilide previously. As per previous instructions, she took her last dose of flecainide greater than 72 hours ago on the evening of 04/19/2022. She has remained on her chronic dose of atenolol 12.5 mg twice daily. Since her office visit, she notes no change in her general health. She has been working with sleep medicine with regards to complaints of restless legs when sleeping. Her ferritin level had been normal. She has a long history of medication intolerances including other antiarrhythmics. She was previously on brand name Tikosyn (initiated in 2016) but had difficulty obtaining it, and she has the impression that the generic dofetilide had not been effective for her. She ultimately decided to discontinue her dofetilide 500 micrograms twice daily in November,. She remained on low-dose atenolol, and Eliquis. She has undergone pulmonary vein isolation at [facility] in April,, and then due to recurrent atrial fibrillation she underwent repeat ablation with FIRM mapping, and atrial flutter ablation on 07/28/[address] [facility] with both procedures having been performed by Dr. Aleksandr Enriquez at that time. Prior to her ablation therapy, trials of multiple antiarrhythmic medications had been unsuccessful including sotalol, flecainide, and amiodarone. 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 Most recent cardioversion had taken place in April, converting to sinus bradycardia while on atenolol 12.5 milligrams twice daily flecainide 100 milligrams twice daily with a 5.8 second conversion pause post synchronized cardioversion. Principal Diagnosis paroxysmal atrial fibrillation Discharge Data Allergies Allergy/AdvReac Type Severity Reaction Status Date / Time No Known Allergies Allergy Verified 05/23/20 08:08 Hospital Course (1) Encounter for monitoring anti-arrhythmic therapy: Plan The QTc was prolonged with a dose of dofetilide 500 mcg. Dose reduced to 250 mcg two times per day with stable QTc and she remained in sinus rhythm. Keep follow up in May as planned. Total Time Total Time Spent Total Time Spent (In Minutes): 45 minutes , with regards to coordinating outpatient medication Discharge Plan Discharge Items Patient Disposition: Home - Self-Care Reason For Visit: PAROXYSMAL ATRIAL FIBRILATION,ANTIARRYTHMIA MEDICA Discharge Diagnosis: Paroxysmal atrial fibrillation. Successful initiation of antiarrhythmic medication dofetilide. Activity: Resume your previous activity Non-emergency contact: Order Planner Call non-emergency contact if: you have any medication questions and your symptoms worsen Follow-up/Referrals: Khadra Olmos MD [Primary Care Provider] - Diet: Heart Healthy Addtl Attending Provider Instructions: Continue medications as prescribed. Pending Studies at Discharge: No Stand-Alone Forms: [employer], Smoking Cessation Medications and DC Order Prescriptions: Continued Eliquis 5 mg tablet 5 mg PO BID atenolol 25 mg tablet 12.5 mg PO BID vitamin B complex [B Complex-Vitamin B12] tablet 1 tab PO QAM magnesium citrate 100 mg Tablet 1 tab PO TID Qty: 0 omega-3 fatty acids Capsule 1,000 mg PO QAM ascorbic acid (vitamin C) [Vitamin C] 1,000 mg Tablet 1,000 mg PO DAILY Estring 2 mg (7.5 mcg /24 hour) Ring 7.5 mcg VAGINAL Q3M Rx Instructions: Administer into the vagina every 3 months. Follow package directions coenzyme Q10 200 mg Capsule 200 mg PO DAILY multivitamin Tablet 1 tab PO DAILY cholecalciferol (vitamin D3) 25 mcg (1,000 unit) Tablet 1,000 unit PO DAILY melatonin 5 mg Capsule 5 mg PO HS PRN (Reason: Sleep) ICaps AREDS2 250 mg-200 unit -12.5 mg-1 mg Capsule 1 cap PO DAILY Changed dofetilide 250 mcg Capsule 250 mcg PO BID Qty: 180 3RF Discharge Orders: Discharge Order (Routine); Ordered 04/27/22 Ordered By: Raimundo Escalante Admission Data Admit Date/Time: 04/24/22 09:58 Attending Provider: Raimundo Escalante Admit Provider: Raimundo Escalante Primary Care Provider: Khadra Olmos
== END 2022-04-27 14:51 | disposition home or self-care (01) | DRG 310 ==
LOC: ED 09:54 → 2S 09:58